=== PATIENT | female | born 1945 | race Caucasian/White ===

== ENCOUNTER 2017-11-14 21:47 | Emergency (ER) | payer MEDICARE, OTHER ==
[2017-11-14 22:55] LABS: HEMATOCRIT 29.9 % (36.0-47.0); HEMOGLOBIN 9.9 g/dL (12.0-15.5); MEAN CORPUSCULAR HEMOGLOBIN 29.3 pg (27.0-33.4); MEAN CORPUSCULAR HGB CONC 33.1 g/dL (32.0-36.0); MEAN CORPUSCULAR VOLUME 89 fl (80-97); PLATELET COUNT 301 10^3/uL (150-450); RED BLOOD COUNT 3.37 10^6/uL (3.72-5.28); RED CELL DISTRIBUTION WIDTH 13.5 % (11.5-14.0); WHITE BLOOD COUNT 11.7 10^3/uL (4.0-10.5)
--- NOTE | 2017-11-14 23:05 | RADIOLOGY REPORT (SQ) ---
EXAM DESCRIPTION: XR CHEST 1 VIEW COMPLETED DATE/TME: 11/14/2017 22:31 CLINICAL HISTORY: 72 years, Female, SOB Findings: The heart is not enlarged. No consolidation or pleural effusion. No pulmonary edema or pneumothorax. IMPRESSION: No acute disease.
[2017-11-14 23:06] LABS: ALANINE AMINOTRANSFERASE 28 U/L (9-52); ALBUMIN 3.7 g/dL (3.5-5.0); ALKALINE PHOSPHATASE 72 U/L (38-126); ANION GAP 13 (5-19); ASPARTATE AMINO TRANSFERASE 25 U/L (14-36); BILIRUBIN,DIRECT 0.4 mg/dL (0.0-0.4); BILIRUBIN,TOTAL 0.6 mg/dL (0.2-1.3); BLOOD UREA NITROGEN 35 mg/dL (7-20); CALCIUM 8.9 mg/dL (8.4-10.2); CARBON DIOXIDE 19 mmol/L (22-30); CHLORIDE 100 mmol/L (98-107); GLUCOSE 113 mg/dL (75-110); POTASSIUM 5.6 mmol/L (3.6-5.0); SODIUM 132.4 mmol/L (137-145); TOTAL PROTEIN 6.7 g/dL (6.3-8.2)
[2017-11-14 23:09] LABS: ABSOLUTE LYMPHOCYTES# (MANUAL) 0.6 10^3/uL (0.5-4.7); ABSOLUTE MONOCYTES # (MANUAL) 1.5 10^3/uL (0.1-1.4); ABSOLUTE NEUTROPHILS# (MANUAL) 9.6 10^3/uL (1.7-8.2); BASOPHILS % (MANUAL) 0 % (0-2); EOSINOPHILS % (MANUAL) 0 % (0-6); LYMPHOCYTES % (MANUAL) 5 % (13-45); MONOCYTES % (MANUAL) 13 % (3-13); PLATELET COMMENT ADEQUATE; SEGMENTED NEUTROPHILS % (MAN) 82 % (42-78); TOTAL CELLS COUNTED 100; TOXIC GRANULATION SLIGHT
[2017-11-14] MEDS ORDERED: IPRATROPIUM/ALBUTEROL 0.5-2.5 MG/3 ML AMPUL NEB ONE (23:10)
[2017-11-14] MEDS ORDERED: METHYLPREDNISOLONE INJ 125 MG/2 ML SDV IV ONE (23:12)
[2017-11-14] MEDS: MAGNESIUM SULFATE/D5W 1 GM/100 ML RTUPB IV SCH (23:44)
[2017-11-14 23:45] LABS: VENOUS BLOOD BASE EXCESS -5.3 mmol/L; VENOUS BLOOD HCO3 20.4 mmol/L (20-32); VENOUS BLOOD PCO2 40.7 mmHg (35-63); VENOUS BLOOD PH 7.32 (7.30-7.42)
[2017-11-15 00:19] LABS: APPEARANCE,URINE SLIGHTLY-CLOUDY; BILIRUBIN,URINE NEGATIVE (NEGATIVE); COLOR,URINE YELLOW; GLUCOSE, URINE NEGATIVE (NEGATIVE); KETONES,URINE NEGATIVE (NEGATIVE); LEUKOCYTE ESTERASE,URINE TRACE (NEGATIVE); NITRITE,URINE NEGATIVE (NEGATIVE); PROTEIN,URINE 30 mg/dL (NEGATIVE); URINE SPECIFIC GRAVITY 1.017; UROBILINOGEN,URINE NEGATIVE mg/dL (<2.0)
[2017-11-15] MEDS ORDERED: NORMAL SALINE 1000 ML 1,000 ML IV ONE (00:51)
[2017-11-15] MEDS: MAGNESIUM SULFATE/D5W 1 GM/100 ML RTUPB IV SCH (01:06)
[2017-11-15 03:46] LABS: ALANINE AMINOTRANSFERASE 28 U/L (9-52); ALKALINE PHOSPHATASE 64 U/L (38-126); ANION GAP 10 (5-19); ASPARTATE AMINO TRANSFERASE 22 U/L (14-36); BILIRUBIN,DIRECT 0.5 mg/dL (0.0-0.4); BILIRUBIN,TOTAL 0.5 mg/dL (0.2-1.3); BLOOD UREA NITROGEN 30 mg/dL (7-20); CALCIUM 7.8 mg/dL (8.4-10.2); CARBON DIOXIDE 18 mmol/L (22-30); CHLORIDE 104 mmol/L (98-107); GLUCOSE 195 mg/dL (75-110); POTASSIUM 5.3 mmol/L (3.6-5.0); SODIUM 131.7 mmol/L (137-145); TOTAL PROTEIN 5.7 g/dL (6.3-8.2)
[2017-11-15] MEDS ORDERED: IPRATROPIUM/ALBUTEROL 0.5-2.5 MG/3 ML AMPUL NEB ONE (05:06)
--- NOTE | 2017-11-15 05:11 | ER Document Report ---
ED Respiratory Problem - General Chief Complaint: Shortness Of Breath Stated Complaint: DIFFICULTY BREATHING Time Seen by Provider: 11/14/17 22:55 Notes: Patient is a 72-year-old female presenting to the emergency department complaining of shortness of breath. Patient states she has a history of COPD and woke up this morning a little more short of breath than normal. Patient states she took one albuterol nebulizer at 10 AM and felt a little bit better. This evening the shortness of breath returned. Patient states she took one albuterol nebulizer at 2030 and another one at 2044. These did not seem to help so she presented to the emergency room. Pt. denies chest pain, nausea, vomiting, diarrhea, lightheadedness, syncope. Patient does state she has had some congestion, cough for the last couple of days, denies fever. TRAVEL OUTSIDE OF THE [place] IN LAST 30 DAYS: No - Related Data Allergies/Adverse Reactions: Sulfa (Sulfonamide Antibiotics) Allergy (Verified 02/17/14 11:29) Past Medical History - Social History Smoking Status: Former Smoker Lives with: Family Family History: Reviewed & Not Pertinent, Hypertension Patient has suicidal ideation: No Patient has homicidal ideation: No - Past Medical History Cardiac Medical History: Reports: Hx Hypercholesterolemia, Hx Hypertension Pulmonary Medical History: Reports: Hx COPD, Hx Pneumonia Denies: Hx Tuberculosis Renal/ Medical History: Denies: Hx Peritoneal Dialysis Malignancy Medical History: Reports: Hx Breast Cancer Musculoskeletal Medical History: Reports Hx Arthritis Past Surgical History: Reports: Hx Mastectomy - Right 2004. Denies: Hx Pacemaker - Immunizations Hx Diphtheria, Pertussis, Tetanus Vaccination: Yes Hx Pneumococcal Vaccination: 11/24/09 Review of Systems - Review of Systems Constitutional: See HPI EENT: See HPI Cardiovascular: See HPI Respiratory: See HPI Gastrointestinal: See HPI Genitourinary: No symptoms reported Female Genitourinary: No symptoms reported Musculoskeletal: See HPI Skin: No symptoms reported Hematologic/Lymphatic: No symptoms reported Neurological/Psychological: No symptoms reported Physical Exam - Vital signs Vitals: Temp Pulse Resp BP Pulse Ox 97.4 F 95 18 126/40 H 96 11/14/17 22:03 11/14/17 22:03 11/14/17 22:03 11/14/17 22:03 11/14/17 22:03 - Notes Notes: GENERAL: Alert, interacts well. No acute distress. HEAD: Normocephalic, atraumatic. EYES: Pupils equal, round, and reactive to light. Extraocular movements intact. ENT: Oral mucosa moist, tongue midline. NECK: Full range of motion. Supple. Trachea midline. LUNGS: Diminished bilateral bases, wheezing inspiratory expiratory apices. No obvious respiratory distress, speaking in full sentences 99% on room air. HEART: Regular rate and rhythm. No murmur ABDOMEN: Soft, non-tender. Non-distended. Bowel sounds present in all 4 quadrants. EXTREMITIES: Moves all 4 extremities spontaneously. No edema, normal radial and dorsalis pedis pulses bilaterally. No cyanosis. BACK: no cervical, thoracic, lumbar midline tenderness. No saddle anesthesia, normal distal neurovascular exam. NEUROLOGICAL: Alert and oriented x3. Normal speech. PSYCH: Normal affect, normal mood. SKIN: Warm, dry, normal turgor. No rashes or lesions noted. Course - Re-evaluation Re-evalutation: Pt. stated she felt a lot better after initial treatments. Was 99% on RA in the room at rest. Staff got the pt. up for ambulation with SPO2 and stated that her SP02 went down to 89%. Pt. never stated she was having trouble breathing and never became tachypneic per staff. Extensive conversation with patient about potential admission due to oxygen saturation. While sitting in the room patient's oxygen saturation 99%. Patient in no obvious distress. Pt. stated she does not want to be admitted and states she usually does not walk as far as staff made her walk in the ED ever. Stated she has family at home with her all the time and has an apt with PCP on Friday already. I offered the Pt. one more breathing treatment and then we would re-check the pts ambulatory SPO2. Per staff on ambulation the pts SPO2 went to 93%, again without any signs of respiratory distress at that time. Daughter and Pt. stated they are unsure of the pts normal SP02. Pt. continues to be in no obvious distress and wishes to be d/c. Stated she was not going to stay in the hospital. Daughter stated she was going to be with the pt. and that her brother (the Pts son) lives with her and will be around all day. Extensive conversation with Pt and daughter about need to f/u with PCP for kidney function re-check and to monitor her breathing. Return precautions given, patient states they understand. Pt. stated she has plenty of Albuterol Nebs at home, instructed her to take them every 4 hours for the next few days and then after that as needed. - Vital Signs Vital signs: Temp Pulse Resp BP Pulse Ox 98.0 F 95 11 L 123/53 L 97 11/15/17 02:50 11/14/17 22:03 11/15/17 06:22 11/15/17 06:22 11/15/17 06:22 - Laboratory Result Diagrams: 11/14/17 22:43 11/15/17 03:14 Laboratory results interpreted by me: 11/14/17 11/14/17 11/14/17 22:43 22:43 23:56 WBC 11.7 H RBC 3.37 L Hgb 9.9 L Hct 29.9 L Seg Neuts % (Manual) 82 H Lymphocytes % (Manual) 5 L Abs Neuts (Manual) 9.6 H Abs Monocytes (Manual) 1.5 H Sodium 132.4 L Potassium 5.6 H Carbon Dioxide 19 L BUN 35 H Creatinine 1.97 H Est GFR ( Amer) 30 L Est GFR (Non-Af Amer) 25 L Glucose 113 H Calcium Direct Bilirubin Total Protein Albumin Urine Protein 30 H Ur Leukocyte Esterase TRACE H 11/15/17 03:14 WBC RBC Hgb Hct Seg Neuts % (Manual) Lymphocytes % (Manual) Abs Neuts (Manual) Abs Monocytes (Manual) Sodium 131.7 L Potassium 5.3 H Carbon Dioxide 18 L BUN 30 H Creatinine 1.55 H Est GFR ( Amer) 40 L Est GFR (Non-Af Amer) 33 L Glucose 195 H Calcium 7.8 L Direct Bilirubin 0.5 H Total Protein 5.7 L Albumin 3.0 L Urine Protein Ur Leukocyte Esterase Discharge - Discharge Clinical Impression: COPD (chronic obstructive pulmonary disease) Qualifiers: COPD type: unspecified COPD Qualified Code(s): J44.9 - Chronic obstructive pulmonary disease, unspecified Condition: Stable Disposition: HOME, SELF-CARE Additional Instructions: Return to the emergency department should you have any shortness of breath, chest pains, dizziness, lightheadedness, passing out, or have any other concerning symptoms. Follow-up with your primary care in 24-48 hours. Take steroids as prescribed and continue her at home albuterol every 4 hours as needed. Chronic Obstructive Lung Disease You have chronic obstructive lung disease (COPD). The symptoms come from emphysema (damage to small airways, with trapping of air in large sacks in the lung) and chronic bronchitis (repeated infection and damage to larger airways). The cause is almost always cigarette smoking, although dust exposure, asthma, and infections contribute. You should avoid fumes, dust, and smoke (especially tobacco smoke). Your condition will flare from time to time. There is no cure, but the symptoms can be treated. Bronchodilators (asthma medicine) are often helpful. Antibiotics help when infection is present. When shortness of breath is severe, we may prescribe cortisone medication. If medicine doesn't help enough, we can arrange for you to have an oxygen tank at home. Notify your doctor at once if sputum becomes thick, foul, or bloody, if you develop a fever or chest pain, or if your shortness of breath worsens. Prescriptions: Prednisone [Deltasone 20 mg Tablet] 3 tab PO DAILY 5 Days tablet Referrals: ELBERT DAY MD [Primary Care Provider] - Follow up as needed
[2017-11-15 06:30] VITALS: BP 123/53
--- NOTE | 2017-11-15 12:41 | EKG REPORT ---
SEVERITY:- ABNORMAL ECG - SINUS RHYTHM PROBABLE ANTEROSEPTAL INFARCT, AGE INDETERM VERSUS LEAD PLACEMENT : Confirmed by: Nallely Morton MD 15-Nov-2017 12:40:53
== END 2017-11-15 06:40 | disposition home or self-care (01) ==
LOC: ER 21:47
DX: J44.9 Chronic obstructive pulmonary disease, unspecified (principal); E78.00 Pure hypercholesterolemia, unspecified; I10 Essential (primary) hypertension; Z85.3 Personal history of malignant neoplasm of breast
CPT/HCPCS: 93005; 94640 ×2; 99285; 96361; 96375; 96365; 96366; 36415; 85025; 80053; 81001; 82803; 71045; 93010; J2930; J3475 ×2; A9270 ×2; J7620

== ENCOUNTER 2019-09-28 10:00 | Inpatient (IN) | payer MEDICARE, OTHER ==
[2019-09-28 10:41] LABS: ABSOLUTE LYMPHOCYTES (AUTO) 0.5 10^3/uL (0.5-4.7); ABSOLUTE MONOCYTES (AUTO) 0.6 10^3/uL (0.1-1.4); ABSOLUTE NEUT (AUTO) 5.7 10^3/uL (1.7-8.2); BASOPHILS % (AUTO) 0.4 % (0-2); HEMOGLOBIN 12.9 g/dL (12.0-15.5); LYMPHOCYTES % (AUTO) 7.5 % (13-45); MEAN CORPUSCULAR HEMOGLOBIN 28.5 pg (27.0-33.4); MEAN CORPUSCULAR HGB CONC 33.1 g/dL (32.0-36.0); MEAN CORPUSCULAR VOLUME 86 fl (80-97); MONOCYTES % (AUTO) 9.2 % (3-13); PLATELET COUNT 265 10^3/uL (150-450); RED BLOOD COUNT 4.53 10^6/uL (3.72-5.28); RED CELL DISTRIBUTION WIDTH 14.7 % (11.5-14.0); SEGMENTED NEUTROPHILS % (AUTO) 82.9 % (42-78); TOTAL CELLS COUNTED % (AUTO) 100 %; WHITE BLOOD COUNT 6.9 10^3/uL (4.0-10.5)
[2019-09-28 11:01] LABS: ALBUMIN 4.7 g/dL (3.5-5.0); ALKALINE PHOSPHATASE 75 U/L (38-126); ANION GAP 17 (5-19); ASPARTATE AMINO TRANSFERASE 50 U/L (14-36); BILIRUBIN,DIRECT 0.2 mg/dL (0.0-0.4); BILIRUBIN,TOTAL 0.5 mg/dL (0.2-1.3); BLOOD UREA NITROGEN 33 mg/dL (7-20); CALCIUM 9.6 mg/dL (8.4-10.2); CARBON DIOXIDE 20 mmol/L (22-30); CHLORIDE 100 mmol/L (98-107); GLUCOSE 122 mg/dL (75-110); POTASSIUM 5.1 mmol/L (3.6-5.0)
[2019-09-28] MEDS ORDERED: HYDRALAZINE HCL INJ/PF 20 MG/1 ML SDV IV ONE ×2 (11:01→13:04)
[2019-09-28] MEDS ORDERED: NORMAL SALINE 1000 ML 1,000 ML IV ONE (11:01)
[2019-09-28] MEDS ORDERED: ONDANSETRON HCL INJ/PF 4 MG/2 ML SDV IV ONE (11:02)
[2019-09-28] MEDS ORDERED: METOCLOPRAMIDE HCL INJ/PF 10 MG/2 ML SDV IV ONE ×2 (12:05→14:44)
[2019-09-28] MEDS ORDERED: METOPROLOL TARTRATE PF/INJ 5 MG/5 ML SDV IV ONE ×3 (12:05→13:30)
[2019-09-28 12:10] LABS: APPEARANCE,URINE CLEAR; BILIRUBIN,URINE NEGATIVE (NEGATIVE); COLOR,URINE YELLOW; GLUCOSE, URINE NEGATIVE (NEGATIVE); KETONES,URINE 20 mg/dL (NEGATIVE); LEUKOCYTE ESTERASE,URINE SMALL (NEGATIVE); NITRITE,URINE NEGATIVE (NEGATIVE); PROTEIN,URINE >=500 mg/dL (NEGATIVE); URINE SPECIFIC GRAVITY 1.014; UROBILINOGEN,URINE NEGATIVE mg/dL (<2.0)
--- NOTE | 2019-09-28 13:04 | ER Document Report ---
Entered by JAYY BRUNO SCRIBE 09/28/19 1058 Acting as scribe for:VIRGINIA TREVINO MD ED GI/ - General Chief Complaint: Nausea/Vomiting/Diarrhea Stated Complaint: NAUSEA/VOMITING Time Seen by Provider: 09/28/19 10:42 Primary Care Provider: ELBERT DAY MD [Primary Care Provider] - Follow up as needed Mode of Arrival: Medic Information source: Patient Notes: This 74 year old female patient presents to the emergency department today with complaints of nausea, vomiting, and diarrhea for the last few days. Patient was given zofran yesterday by her PCP but this did not help her vomiting. Patient has been unable to keep down any of her medications the last few days. Patient denies any fevers, cough, or abdominal pain. TRAVEL OUTSIDE OF THE [place] IN LAST 30 DAYS: No - Related Data Allergies/Adverse Reactions: Sulfa (Sulfonamide Antibiotics) Allergy (Verified 09/28/19 10:12) Past Medical History - General Information source: Patient - Social History Smoking Status: Former Smoker Cigarette use (# per day): No Chew tobacco use (# tins/day): No Frequency of alcohol use: None Drug Abuse: None Family History: Reviewed & Not Pertinent, Hypertension Patient has homicidal ideation: No - Past Medical History Cardiac Medical History: Reports: Hx Hypercholesterolemia, Hx Hypertension Pulmonary Medical History: Reports: Hx COPD, Hx Pneumonia Malignancy Medical History: Reports: Hx Breast Cancer Musculoskeletal Medical History: Reports Hx Arthritis Past Surgical History: Reports: Hx Mastectomy - Right 2004 - Immunizations Hx Diphtheria, Pertussis, Tetanus Vaccination: Yes Hx Pneumococcal Vaccination: 11/24/09 Review of Systems - Review of Systems Constitutional: denies: Fever EENT: No symptoms reported Cardiovascular: No symptoms reported Respiratory: denies: Cough Gastrointestinal: See HPI, Diarrhea, Nausea, Vomiting. denies: Abdominal pain Genitourinary: No symptoms reported Female Genitourinary: No symptoms reported Musculoskeletal: No symptoms reported Skin: No symptoms reported Hematologic/Lymphatic: No symptoms reported Neurological/Psychological: No symptoms reported -: Yes All other systems reviewed and negative Physical Exam - Vital signs Vitals: Pulse Ox 92 09/28/19 10:05 - Notes Notes: Physical Exam: General: Alert, very shaky, appears weak. HEENT: Normocephalic. Atraumatic. PERRL. Extraocular movements intact. Oropharynx clear. Dry oral mucosa. Neck: Supple. Non-tender. Respiratory: No respiratory distress. Clear and equal breath sounds bilaterally. Cardiovascular: Tachycardic, regular rhythm. Abdominal: Normal Inspection. Non-tender. No distension. Normal Bowel Sounds. Back: No gross abnormalities. Extremities: Moves all four extremities. Upper extremities: Normal inspection. Normal ROM. Lower extremities: Normal inspection. No edema. Normal ROM. Neurological: Normal cognition. AAOx4. Normal speech. Psychological: Normal affect. Normal Mood. Skin: Warm. Dry. Normal color. Course - Re-evaluation Re-evalutation: 09/28/19 15:07 The patient was evaluated during the global COVID-19 pandemic and that diagnosis was suspected/considered upon their initial presentation. Their evaluation, treatment and testing was consistent with current guidelines for patients who present with complaints or symptoms that may be related to COVID-19. - Vital Signs Vital signs: Temp Pulse Resp BP Pulse Ox 99.3 F 26 H 181/64 H 96 09/28/19 13:01 09/28/19 13:45 09/28/19 13:45 09/28/19 13:45 - Laboratory Result Diagrams: 09/28/19 10:24 09/28/19 10:24 Laboratory results interpreted by me: 09/28/19 09/28/19 09/28/19 10:24 10:24 10:24 RDW 14.7 H Lymph % (Auto) 7.5 L Seg Neutrophils % 82.9 H D-Dimer 1.12 H Sodium 136.8 L Potassium 5.1 H Carbon Dioxide 20 L BUN 33 H Creatinine 1.39 H Est GFR ( Amer) 45 L Est GFR (MDRD) Non-Af 37 L Glucose 122 H AST 50 H Urine Protein Urine Ketones Urine Blood Ur Leukocyte Esterase 09/28/19 11:44 RDW Lymph % (Auto) Seg Neutrophils % D-Dimer Sodium Potassium Carbon Dioxide BUN Creatinine Est GFR ( Amer) Est GFR (MDRD) Non-Af Glucose AST Urine Protein >=500 H Urine Ketones 20 H Urine Blood SMALL H Ur Leukocyte Esterase SMALL H - EKG Interpretation by Tn EKG shows normal: Sinus rhythm, [place], Intervals, ST-T Waves. abnormal: QRS Complexes - Consider anteroseptal infarct Rate: Normal - 90 Rhythm: NSR When compared to previous EKG there are: No significant change - Consults Dr. Manzo Time consulted: 14:27 Consulted provider: will come to ER Dr. Moore Time consulted: 14:17 Consulted provider: will see as inpatient - Okay to keep the patient here. He will consult. Discharge - Discharge Clinical Impression: Elevated troponin I level, Asymptomatic hypertensive urgency Nausea and vomiting Qualifiers: Vomiting type: unspecified Vomiting Intractability: non-intractable Qualified Code(s): R11.2 - Nausea with vomiting, unspecified Condition: Stable Disposition: ADMITTED INPATIENT Admitting Provider: Jovany (Hospitalist) Unit Admitted: IMCU Referrals: ELBERT DAY MD [Primary Care Provider] - Follow up as needed I personally performed the services described in the documentation, reviewed and edited the documentation which was dictated to the scribe in my presence, and it accurately records my words and actions.
[2019-09-28] MEDS ORDERED: NORMAL SALINE 1000 ML 500 ML IV ONE (13:05)
[2019-09-28] MEDS ORDERED: CLONIDINE HCL 0.2 MG TABLET PO ONE (13:30)
--- NOTE | 2019-09-28 15:44 | RADIOLOGY REPORT (SQ) ---
EXAM DESCRIPTION: ACUTE ABDOMEN SERIES IMAGES COMPLETED DATE/TIME: 09/28/2019 3:25 pm REASON FOR STUDY: Persistent nausea and vomiting COMPARISON: None. NUMBER OF VIEWS: Three views. TECHNIQUE: Frontal chest, supine abdomen and upright/decubitus abdomen radiographic images acquired. LIMITATIONS: None. FINDINGS: CHEST: There is slight blurring of the right hemidiaphragm. FREE AIR: None. No abnormal gas collections. BOWEL GAS PATTERN: Nonobstructive pattern. No dilated loops or air fluid levels. CALCIFICATIONS: No suspicious calcifications. HARDWARE: None in the abdomen. SOFT TISSUES: No gross mass or suggestion of organomegaly. BONES: Lumbar degenerative disc disease and spondylosis. Scoliosis. OTHER: No other significant finding. IMPRESSION: Cannot exclude a limited right lower lobe pneumonia. Osseous findings as described. TECHNICAL DOCUMENTATION: JOB ID: [id number] 2010 [employer]- All Rights Reserved Reading location - IP/workstation name: [email or web address]
--- NOTE | 2019-09-28 16:51 | PDOC H&P ---
History of Present Illness Admission Date/PCP: 09/28/19 15:46 ELBERT DAY MD Patient complains of: The patient has been having nausea and vomiting for the last several days. History of Present Illness: SNOW FOX is a 74 year old female with a past medical history of hypertension and hypercholesterolemia. She also has a history of chronic obstructive pulmonary disease as well as breast cancer status post right mastectomy in 2004. For the last 2 to 3 days she has been having nausea vomiting and diarrhea. She denies any fever. She does not have any focal abdominal pain. This is not associated with any cough or chest pain. Because of the nausea and vomiting she has not been able to keep down any of her antihypertensive medications. She in fact normally takes clonidine, Imdur, metoprolol, hydralazine, losartan and amlodipine. Because of this her blood pressure is out of control. The highest systolic pressure was 210 with the highest diastolic pressure of 117. Highest pulse rate was 112. Troponins were 0.162 initially and this increased to 0.271. Third troponin is pending. BUN and creatinine were elevated. With a BUN of 33 and a creatinine of 1.39 her GFR was less than 40. The patient will be seen by cardiology. An echocardiogram has been ordered. For the severe hypertension a renal Doppler study was ordered to check for renal artery stenosis. We will try and correct her blood pressure slowly. Her d-dimer was 1.12 but her LDH and ferritin were normal. I do not believe this is Covid-19 related. She will be admitted to the hospital service. She will be monitored closely on telemetry. We will have serial troponins drawn and I have asked for a repeat EKG in the morning. Cardiology will be seeing the patient. I do have her on full-strength Lovenox therapy at 50 mg once daily (adjusted for renal function). We will continue aspirin and statin therapy. Past Medical History Cardiac Medical History: Reports: Hyperlipidema, Hypertension Pulmonary Medical History: Reports: Chronic Obstructive Pulmonary Disease (COPD), Pneumonia Denies: Tuberculosis Malignancy Medical History: Reports: Breast Cancer Musculoskeltal Medical History: Reports: Arthritis Psychiatric Medical History: Reports: Tobacco Dependency Past Surgical History Past Surgical History: Reports: Mastectomy - Right 2004 Denies: Pacemaker Social History Information Source: Patient, [facility] Records Smoking Status: Former Smoker Electronic Cigarette use?: No Frequency of Alcohol Use: None Hx Recreational Drug Use: No Hx Prescription Drug Abuse: No - Advance Directive Resuscitation Status: Do Not Resuscitate Surrogate healthcare decision maker:: The patient is a and her daughter would be the designated decision maker. She in fact lives quite close to her daughter. Family History Family History: Reviewed & Not Pertinent, Hypertension Parental Family History Reviewed: Yes Children Family History Reviewed: Yes Sibling(s) Family History Reviewed.: Yes Medication/Allergy Home Medications: Amlodipine Besylate [Norvasc 5 mg Tablet] 5 mg PO DAILY 09/28/19 Clonidine HCl [Catapres 0.2 mg Tablet] 0.4 mg PO Q12 09/28/19 Fluticasone/Umeclidin/Vilanter [Trelegy 100-62.5-25 Mcg Ellipta 14 Dose/Dpi] 1 puff IH DAILY 09/28/19 Hydralazine HCl [Apresoline 50 mg Tablet] 75 mg PO Q8 09/28/19 Isosorbide Mononitrate [Imdur 30 mg Tablet.er] 30 mg PO BID 09/28/19 Losartan Potassium 100 mg PO DAILY 09/28/19 Metoprolol Succinate [Toprol Xl 50 mg Tab.sr] 100 mg PO DAILY 09/28/19 Ondansetron [Zofran Odt 4 mg Tablet] 4 mg PO Q8HP PRN 09/28/19 Pravastatin Sodium 40 mg PO QHS 09/28/19 Allergies/Adverse Reactions: Sulfa (Sulfonamide Antibiotics) Allergy (Verified 09/28/19 10:12) Review of Systems All systems: reviewed and no additional remarkable complaints except as stated Constitutional: PRESENT: fatigue Gastrointestinal: PRESENT: diarrhea, nausea, vomiting Physical Exam Vital Signs: Temp Pulse Resp BP Pulse Ox 99.3 F 26 H 181/64 H 96 09/28/19 13:01 09/28/19 13:45 09/28/19 13:45 09/28/19 13:45 Intake & Output 09/27/19 09/28/19 09/29/19 06:59 06:59 06:59 Intake Total 1000 Balance 1000 Weight 50.349 kg General appearance: PRESENT: no acute distress, well-developed, well-nourished. ABSENT: cooperative - Patient was sleepy. She had vomited earlier and has received several doses of antiemetic therapy. Her participation in this encounter was somewhat limited. Head exam: PRESENT: atraumatic, normocephalic Eye exam: PRESENT: other - Unable to assess Ear exam: PRESENT: normal external ear exam. ABSENT: bleeding, drainage Mouth exam: PRESENT: dry mucosa, tongue midline Respiratory exam: PRESENT: clear to auscultation nelly, symmetrical, unlabored. ABSENT: prolonged expiratory phas, rales, rhonchi, tachypnea, wheezes Cardiovascular exam: PRESENT: irregular rhythm. ABSENT: bradycardia, diastolic murmur, systolic murmur, tachycardia GI/Abdominal exam: PRESENT: normal bowel sounds, soft. ABSENT: distended, guarding, tenderness Rectal exam: PRESENT: deferred Gentrourinary exam: ABSENT: indwelling catheter Extremities exam: ABSENT: pedal edema Musculoskeletal exam: PRESENT: normal inspection, other - Decreased muscle mass. ABSENT: deformity, dislocation Neurological exam: PRESENT: awake - Just barely awake. She did open her eyes to verbal stimulus. She clearly was not alert., oriented to person, oriented to place, oriented to situation, CN II-XII grossly intact. ABSENT: alert, motor sensory deficit Psychiatric exam: PRESENT: flat affect. ABSENT: agitated, anxious Focused psych exam: ABSENT: delusional, paranoid, restlessness Skin exam: PRESENT: dry, normal color, warm. ABSENT: rash Results Laboratory Results: 09/28/19 10:24 09/28/19 10:24 09/28/19 09/28/19 09/28/19 10:24 10:24 10:24 WBC 6.9 RBC 4.53 Hgb 12.9 Hct 39.0 MCV 86 MCH 28.5 MCHC 33.1 RDW 14.7 H Plt Count 265 Seg Neutrophils % 82.9 H Sodium 136.8 L Potassium 5.1 H Chloride 100 Carbon Dioxide 20 L Anion Gap 17 BUN 33 H Creatinine 1.39 H Est GFR ( Amer) 45 L Glucose 122 H Calcium 9.6 Magnesium 2.3 Ferritin Total Bilirubin 0.5 AST 50 H Alkaline Phosphatase 75 Total Protein 8.0 Albumin 4.7 Urine Color Urine Appearance Urine pH Ur Specific [place] Urine Protein Urine Glucose (UA) Urine Ketones Urine Blood Urine Nitrite Ur Leukocyte Esterase Urine WBC (Auto) Urine RBC (Auto) 09/28/19 09/28/19 11:44 14:33 WBC RBC Hgb Hct MCV MCH MCHC RDW Plt Count Seg Neutrophils % Sodium Potassium Chloride Carbon Dioxide Anion Gap BUN Creatinine Est GFR ( Amer) Glucose Calcium Magnesium Ferritin 262.00 Total Bilirubin AST Alkaline Phosphatase Total Protein Albumin Urine Color YELLOW Urine Appearance CLEAR Urine pH 5.0 Ur Specific [place] 1.014 Urine Protein >=500 H Urine Glucose (UA) NEGATIVE Urine Ketones 20 H Urine Blood SMALL H Urine Nitrite NEGATIVE Ur Leukocyte Esterase SMALL H Urine WBC (Auto) 17 Urine RBC (Auto) 7 09/28/19 09/28/19 09/28/19 10:24 10:24 12:25 Creatine Kinase 118 102 Troponin I 0.162 09/28/19 12:25 Creatine Kinase Troponin I 0.271 Impressions: Acute Abdomen Series 09/28/19 14:43 IMPRESSION: Cannot exclude a limited right lower lobe pneumonia. Osseous findings as described. Assessment and Plan - Diagnosis (1) Asymptomatic hypertensive urgency Is this a current diagnosis for this admission?: Yes Plan: I do not want to drive her blood pressure down too quickly. I will substitute carvedilol for metoprolol. I will decrease her hydralazine to 50 mg twice daily. I will split her losartan to 50 mg twice daily. We will continue the amlodipine 5 mg daily. I have decreased the clonidine to 0.2 mg twice daily. I have continued the Imdur 30 mg twice daily. We will continue to monitor her on telemetry and with serial vital signs. (2) Elevated troponin I level Is this a current diagnosis for this admission?: Yes Plan: The first troponin was 0.162. The second troponin was 0.271. The third troponin is pending. The EKG did show a flutter with possible nonspecific ST changes indicating strain. The patient is already on nitrate therapy. I have added aspirin 81 mg as well as the full strength Lovenox. In addition we will continue her statin therapy. I did substitute 80 mg of atorvastatin for her 40 mg of pravastatin. (3) Atrial flutter Qualifiers: Atrial flutter type: typical Qualified Code(s): I48.3 - Typical atrial flutter Is this a current diagnosis for this admission?: Yes Plan: I did not see atrial fibrillation or atrial flutter in her history. For now we will utilize carvedilol instead of metoprolol. I will start at 6.25 mg twice daily and adjust based on pulse and blood pressure. She will be on full- strength Lovenox anticoagulation at this time. (4) Nausea and vomiting Qualifiers: Vomiting type: unspecified Vomiting Intractability: non-intractable Qualified Code(s): R11.2 - Nausea with vomiting, unspecified Is this a current diagnosis for this admission?: Yes Plan: Possibly related to a viral illness. I have ordered a stool for culture and sensitivity. Antiemetics are available as needed. (5) Chronic obstructive pulmonary disease Qualifiers: COPD type: unspecified COPD Qualified Code(s): J44.9 - Chronic obstructive pulmonary disease, unspecified Is this a current diagnosis for this admission?: Yes Plan: No need for oxygen supplementation. We will continue the patient's Trelegy inhaler. (6) Acute kidney injury Is this a current diagnosis for this admission?: Yes Plan: Possibly related to volume loss from nausea and vomiting with associated inability for appropriate oral intake. Will administer IV fluids. We will continue to monitor intake and output as well as renal function by laboratory studies (7) Hyperkalemia Is this a current diagnosis for this admission?: Yes Plan: Serum potassium is only 5.1. This is not a clinically significant elevation. Will monitor with serial laboratory studies. (8) Hyperglycemia Is this a current diagnosis for this admission?: Yes Plan: Glucose was 122. This is not clinically significant. I will check hemoglobin A1c but no Accu-Cheks at this time. (9) Non-ST elevation myocardial infarction (NSTEMI) Is this a current diagnosis for this admission?: Yes Plan: The troponin levels are definitely above the baseline cutoff for acute infarct. This could be related to strain from hypertension as well as the new atrial flutter. I have ordered a repeat EKG in the morning as well as serial troponins through [facility]. This could certainly be a non-ST elevation myocardial infarction as well. Await further testing results. Cardiology will be seeing the patient as well. An echocardiogram has been ordered. - Time Time Spent with patient: 35 or more minutes Medications reviewed and adjusted accordingly: Yes Anticipated Discharge Disposition: Home, Self Care Anticipated Discharge Timeframe: Unknown - Inpatient Certification Based on my medical assessment, after consideration of the patient's comorbidities, presenting symptoms, or acuity I expect that the services needed warrant INPATIENT care.: Yes I certify that my determination is in accordance with my understanding of Medicare's requirements for reasonable and necessary INPATIENT services [42 CFR 412.3e].: Yes Medical Necessity: Significant Comorbidiites Make Outpatient Treatment Too Risky, Need Close Monitoring Due to Risk of Patient Decompensation, Need For IV Fluids, Need For Continuous Telemetry Monitoring, Need for Pain Control Post Hospital Care: D/C Fitting Room Checker Documentation
[2019-09-28] MEDS ORDERED: MAG HYDROX/AL HYDROX/SIMETH SUSP 30 ML UDCUP PO PRN (17:09)
[2019-09-28] MEDS ORDERED: PROMETHAZINE HCL 25 MG SUPP.RECT PR PRN (17:09)
[2019-09-28] MEDS ORDERED: PROMETHAZINE HCL INJ 25 MG/1 ML VIAL IV PRN (17:09)
[2019-09-28] MEDS ORDERED: ACETAMINOPHEN 650 MG SUPP.RECT PR PRN (17:09)
[2019-09-28] MEDS ORDERED: METOPROLOL TARTRATE PF/INJ 5 MG/5 ML SDV IV PRN (17:49)
[2019-09-28] MEDS ORDERED: HYDRALAZINE HCL INJ/PF 20 MG/1 ML SDV IV PRN (17:49)
[2019-09-28] MEDS: LOSARTAN POTASSIUM 50 MG TABLET PO SCH (18:23)
[2019-09-28] MEDS: ISOSORBIDE MONONITRATE 30 MG TAB.ER.24H PO SCH (18:24)
--- NOTE | 2019-09-28 18:56 | EKG REPORT ---
SEVERITY:- ABNORMAL ECG - SINUS RHYTHM. CONSIDER ANTEROSEPTAL INFARCT : Confirmed by: Reji Delacruz MD 28-Sep-2019 18:55:57
[2019-09-28] MEDS ORDERED: MORPHINE SULFATE 10 MG/ML INJ IV PRN (19:54)
[2019-09-28] MEDS: ENOXAPARIN SODIUM INJ 60 MG/0.6 ML DISP.SYRIN SUBCUT SCH (21:41)
[2019-09-28] MEDS: ASPIRIN 81 MG TABLET, ENT COATED PO SCH (21:42)
[2019-09-28] MEDS: CLONIDINE HCL 0.2 MG TABLET PO SCH (21:42)
[2019-09-28] MEDS: ATORVASTATIN CALCIUM 80 MG TABLET PO SCH (21:42)
[2019-09-28] MEDS: FAMOTIDINE 20 MG TABLET PO SCH (21:43)
[2019-09-28] MEDS: RINGERS SOLUTION,LACTATED 1,000 ML IV PRN (21:43)
[2019-09-28] MEDS: CARVEDILOL 6.25 MG TABLET PO SCH (21:43)
[2019-09-28] MEDS ORDERED: FAMOTIDINE 20 MG TABLET PO SCH (22:00)
[2019-09-28] MEDS ORDERED: ENOXAPARIN SODIUM INJ 60 MG/0.6 ML DISP.SYRIN SUBCUT SCH (22:00)
[2019-09-29] MEDS: LOSARTAN POTASSIUM 50 MG TABLET PO SCH ×2 (05:54→17:43)
[2019-09-29 06:49] LABS: APPEARANCE,URINE CLEAR; BILIRUBIN,URINE NEGATIVE (NEGATIVE); COLOR,URINE YELLOW; GLUCOSE, URINE NEGATIVE (NEGATIVE); KETONES,URINE TRACE mg/dL (NEGATIVE); LEUKOCYTE ESTERASE,URINE TRACE (NEGATIVE); NITRITE,URINE NEGATIVE (NEGATIVE); PROTEIN,URINE 100 mg/dL (NEGATIVE); URINE SPECIFIC GRAVITY 1.011; UROBILINOGEN,URINE NEGATIVE mg/dL (<2.0)
--- NOTE | 2019-09-29 07:43 | EKG REPORT ---
SEVERITY:- BORDERLINE ECG - SINUS RHYTHM NONSPECIFIC ST-T CHANGES- INFERIOR LEADS CONSIDER OLD ANTEROSEPTAL IN : Confirmed by: Reji Delacruz MD 29-Sep-2019 07:42:39
[2019-09-29 08:06] LABS: HEMATOCRIT 37.1 % (36.0-47.0); HEMOGLOBIN 12.4 g/dL (12.0-15.5); MEAN CORPUSCULAR HEMOGLOBIN 28.7 pg (27.0-33.4); MEAN CORPUSCULAR HGB CONC 33.4 g/dL (32.0-36.0); MEAN CORPUSCULAR VOLUME 86 fl (80-97); PLATELET COUNT 310 10^3/uL (150-450); RED BLOOD COUNT 4.32 10^6/uL (3.72-5.28); RED CELL DISTRIBUTION WIDTH 14.5 % (11.5-14.0)
[2019-09-29 08:28] LABS: ALBUMIN 3.6 g/dL (3.5-5.0); ANION GAP 9 (5-19); BLOOD UREA NITROGEN 20 mg/dL (7-20); CALCIUM 8.3 mg/dL (8.4-10.2); CARBON DIOXIDE 26 mmol/L (22-30); CHLORIDE 102 mmol/L (98-107); CHOLESTEROL 178.31 mg/dL (0-200); GLUCOSE 86 mg/dL (75-110); PHOSPHORUS 1.9 mg/dL (2.5-4.5); POTASSIUM 4.3 mmol/L (3.6-5.0); TRIGLYCERIDES 228 mg/dL (<150)
[2019-09-29 08:39] LABS: DIRECT LDL 91 mg/dL (<100)
[2019-09-29 08:41] LABS: VLDL CHOLESTEROL 45.6 mg/dL (10-31)
--- NOTE | 2019-09-29 10:09 | RADIOLOGY REPORT (SQ) ---
EXAM DESCRIPTION: DUPLEX ART/STANISLAV FLOW COMPLETE IMAGES COMPLETED DATE/TIME: 09/29/2019 7:16 am REASON FOR STUDY: Htn, assess renal arteries/aorta COMPARISON: None. TECHNIQUE: Realtime and static grayscale images acquired. Selected color Doppler, velocities and spe ctral images recorded. LIMITATIONS: None. FINDINGS: RIGHT KIDNEY: RENAL ARTERY VELOCITIES: 62 centimeters/second at the origin. 105 cm/sec at the hilum. Segmental a rtery velocity 73 cm/sec. RENAL VEIN: Color doppler flow present, patent. VELOCITY RATIO: 0.94. Normal waveforms. KIDNEY: Normal size. Multiple renal cysts. LEFT KIDNEY: RENAL ARTERY VELOCITIES: Origin velocities not obtained. 120 cm/sec at the hilum. Segmental artery velocity 72 cm/sec. RENAL VEIN: Color doppler flow present, patent. VELOCITY RATIO: 0.91. Normal waveforms. KIDNEY: Normal size. No significant pathology. BLADDER: Normal. OTHER: No other significant finding. IMPRESSION: NO DOPPLER EVIDENCE OF HEMODYNAMICALLY SIGNIFICANT RENAL ARTERY STENOSIS. COMMENT: NORMAL RENAL ARTERY/AORTA VELOCITY RATIO IS LESS THAN OR EQUAL TO 3.5. TECHNICAL DOCUMENTATION: JOB ID: [id number] [employer]- All Rights Reserved Reading location - IP/workstation name: [email or web address]
[2019-09-29] MEDS: CLONIDINE HCL 0.2 MG TABLET PO SCH ×2 (10:13→21:51)
[2019-09-29] MEDS: ISOSORBIDE MONONITRATE 30 MG TAB.ER.24H PO SCH ×2 (10:14→17:43)
[2019-09-29] MEDS: FLUTICASONE/UMECLIDIN/VILANTER 100-62.5-25 MCG/DOSE IH SCH (10:14)
[2019-09-29] MEDS: AMLODIPINE BESYLATE 5 MG TABLET PO SCH (10:14)
[2019-09-29] MEDS: CARVEDILOL 6.25 MG TABLET PO SCH ×2 (10:14→21:52)
--- NOTE | 2019-09-29 10:21 | XCELERA REPORT ---
[address] [address] Transthoracic Echocardiogram Report Name: SNOW FOX Age: 74 yrs Gender: Female : 1945 Patient Status: Inpatient Patient Location: [address] [place] [address] Study Date: 09/28/2019 06:19 PM Height: 64 in Weight: 111 lb BSA: 1.5 m2 Procedure: A complete two-dimensional transthoracic echocardiogram was performed (2D, M-mode, spectral and color flow Doppler). The study was technically difficult with many images being suboptimal in quality. Images from the parasternal window were difficult to obtain and are suboptimal in quality. Reason For Study: a-fib, ?NSTEMI Ordering Physician: IRMA JIMENEZ Performed By: Comfort Prajapati Interpretation Summary The left ventricle is normal in size. Left ventricular systolic function is normal. The Ejection Fraction estimate is 65-70%. Doppler measurements suggest impaired left ventricular relaxation, which is associated with grade I/IV or mild diastolic dysfunction. The left ventricular wall motion is normal. There is no thrombus. Trace to mild MR, trace TR. Calcified aortic valve with mild stenosis with a peak velocity of 2.2 m/s an mean gradient of 8 mmHg. MMode/2D Measurements & Calculations RVDd: 2.7 cm LVIDd: 4.4 cm FS: 39.4 % Ao root diam: 2.6 cm IVSd: 0.82 cm LVIDs: 2.7 cm EDV(Teich): 87.3 mlAo root area: LVPWd: 0.99 cm ESV(Teich): 26.0 ml5.3 cm2 EF(Teich): 70.2 % LA dimension: 2.5 cm LVOT diam: 1.7 cm LVLd ap4: 4.9 cm SV(MOD-sp4): LVOT area: EDV(MOD-sp4): 19.0 ml 32.0 ml 2.2 cm2 LVLs ap4: 4.5 cm ESV(MOD-sp4): 13.0 ml EF(MOD-sp4): 59.4 % Doppler Measurements & Calculations MV E max samantha: MV P1/2t max samantha: Ao V2 max: AI max samantha: 89.9 cm/sec 96.2 cm/sec 220.3 cm/sec 295.7 cm/sec MV A max samantha: MV P1/2t: 80.7 msec Ao max PG: AI max P.0 mmHg 119.0 cm/sec MVA(P1/2t): 2.7 cm2 19.4 mmHg AI dec slope: MV E/A: 0.76 MV dec slope: Ao V2 mean: 144.5 cm/sec2 128.3 cm/sec AI P1/2t: 599.3 msec 349.0 cm/sec2 Ao mean PG: MV dec time: 0.32 sec8.2 mmHg Ao V2 VTI: 46.1 cm ERIC(I,D): 1.5 cm2 ERIC(V,D): 1.3 cm2 LV V1 max PG: SV(LVOT): 70.4 ml PA V2 max: AV P1/2t-pr_phl: 7.1 mmHg 151.4 cm/sec 599.3 msec LV V1 mean PG: PA max P.5 mmHg 9.2 mmHg LV V1 max: 133.3 cm/sec LV V1 mean: 86.9 cm/sec LV V1 VTI: 32.4 cm MV P1/2t-pr_phl: 80.7 msec Left Ventricle The left ventricle is normal in size. Left ventricular systolic function is normal. The Ejection Fraction estimate is 65-70%. Doppler measurements suggest impaired left ventricular relaxation, which is associated with grade I/IV or mild diastolic dysfunction. The left ventricular wall motion is normal. There is no thrombus. Right Ventricle The right ventricle is normal in size, thickness and function. The right ventricular systolic function is normal. Atria The right atrium is normal. The left atrial size is normal. Mitral Valve There is mild to moderate mitral leaflet calcification. There is no evidence of mitral valve prolapse. There is no mitral valve stenosis. There is a trace to mild amount of mitral regurgitation. Aortic Valve The aortic valve is not well visualized secondary to technical limitations. The aortic valve is moderately calcified. There is mild aortic stenosis. There is a trace amount of aortic regurgitation. Tricuspid Valve The tricuspid valve is not well visualized, but is grossly normal. There is no tricuspid valve prolapse. There is no tricuspid stenosis. There is a trace amount of tricuspid regurgitation. Pulmonic Valve The pulmonic valve is not well visualized. There is no vegetation on the pulmonic valve. There is no pulmonic valvular stenosis. There is no pulmonic valvular regurgitation. Effusions There is no pericardial effusion. There is no pleural effusion. : IRMA JIMENEZ Antonio
--- NOTE | 2019-09-29 10:39 | PDOC CONSULTATION ---
Consultation Consult Date: 09/29/19 Attending physician:: IRMA JIMENEZ Provider Consulted: AMARILYS SANZ Consult reason:: HTN and elevated troponin. History of Present Illness Admission Date/PCP: 09/28/19 15:46 ELBERT DAY MD History of Present Illness: SNOW FOX is a 74 year old female with history of hypertension, COPD, breast cancer status post right mastectomy in 2004 and hypercholesterolemia who is consulted to our service for evaluation of elevated troponins. She had been in her usual state of health until approximately 3 days ago when she began having nausea, vomiting and diarrhea reason why she was not able to take any of her medications or if she did, she vomited them right back up. In the emergency room she was found to have a systolic blood pressure of 210 mmHg. Since admission she has remained asymptomatic and feels 100% better. She specifically denies history of atrial flutter or atrial fibrillation as well as chest pain, shortness of breath, DENT, PND, lower extremity edema, palpitations, syncope and presyncope. She is now tolerating p.o.'s with uptrending troponin which peaked at 1.090. When specifically asked, she states that she is able to perform her regular daily activities as well as physical activities without any ischemic or heart failure symptoms. Her echocardiogram yesterday demonstrated a normal ejection fraction without focal wall motion abnormalities and very mild aortic stenosis with a peak velocity of 2.2 m/s and a mean gradient of 8 mmHg. Since admission her blood pressure has remained well controlled. Physical exam on 09/29/2019: GENERAL: Small, appears older than stated age. Pleasant and conversational. Oriented x3 with normal mood. Not in acute distress. Well groomed and well developed. HEENT: Normocephalic, atraumatic. Pupils equal. Sclerae anicteric. Oropharynx moist. NECK: No JVD. No carotid bruits. LUNGS: Clear to auscultation bilaterally. Decreased breath sounds bilaterally normal respiratory effort without the use of accessory muscles or intercostal retractions. CARDIOVASCULAR: Regular rate and rhythm, normal S1 and S2 without murmurs, rubs, or gallops. PMI not displaced. ABDOMEN: No masses or tenderness to palpation. No bruit. No splenomegaly or hepatomegaly. No abdominal aorta bruit noted. EXTREMITIES: No edema, no cyanosis, no clubbing. +2 pulses femoral and pedal pulses bilaterally. SKIN: No lesions or rashes. MUSCULOSKELETAL: No chest tenderness to palpation. Barrel chest. NEUROLOGIC: Nonfocal. No gross sensory or motor deficits bilateral upper or lower extremities. Cardiac studies: Echocardiogram on 09/28/2019 at [facility]: -EF greater than 65%. -Grade 1 diastolic dysfunction. -No wall motion abnormalities. -Trace TR, trace AI. -Mild aortic stenosis with a peak velocity of 2.2 m/s and a mean gradient of 8 mmHg. Echocardiogram on 06/25/2017: -EF greater than 65%. -Mild concentric LVH. -Grade 2 diastolic dysfunction. -Elevated filling pressures. -Mild to moderate MR, mild TR. -Mild pulmonary hypertension. Lexiscan MPS on 06/25/2017: -No evidence of ischemia or infarct. Past Medical History Cardiac Medical History: Reports: Hyperlipidema, Hypertension Pulmonary Medical History: Reports: Chronic Obstructive Pulmonary Disease (COPD), Pneumonia Denies: Tuberculosis Malignancy Medical History: Reports: Breast Cancer Musculoskeltal Medical History: Reports: Arthritis Psychiatric Medical History: Reports: Tobacco Dependency Denies: Depression Past Surgical History Past Surgical History: Reports: Mastectomy - Right 2004 Denies: Pacemaker Social History Smoking Status: Former Smoker Electronic Cigarette use?: No Frequency of Alcohol Use: None Hx Recreational Drug Use: No Hx Prescription Drug Abuse: No - Advance Directive Resuscitation Status: Do Not Resuscitate Family History Family History: Reviewed & Not Pertinent, Hypertension Parental Family History Reviewed: Yes Children Family History Reviewed: Yes Sibling(s) Family History Reviewed.: Yes Medication/Allergy Home Medications: Amlodipine Besylate [Norvasc 5 mg Tablet] 5 mg PO DAILY 09/28/19 Clonidine HCl [Catapres 0.2 mg Tablet] 0.4 mg PO Q12 09/28/19 Fluticasone/Umeclidin/Vilanter [Trelegy 100-62.5-25 Mcg Ellipta 14 Dose/Dpi] 1 puff IH DAILY 09/28/19 Hydralazine HCl [Apresoline 50 mg Tablet] 75 mg PO Q8 09/28/19 Isosorbide Mononitrate [Imdur 30 mg Tablet.er] 30 mg PO BID 09/28/19 Losartan Potassium 100 mg PO DAILY 09/28/19 Metoprolol Succinate [Toprol Xl 50 mg Tab.sr] 100 mg PO DAILY 09/28/19 Ondansetron [Zofran Odt 4 mg Tablet] 4 mg PO Q8HP PRN 09/28/19 Pravastatin Sodium 40 mg PO QHS 09/28/19 Allergies/Adverse Reactions: Sulfa (Sulfonamide Antibiotics) Allergy (Verified 09/28/19 10:12) Physical Exam Vital Signs: Temp Pulse Resp BP Pulse Ox 98.0 F 77 20 135/55 H 98 09/29/19 03:44 09/29/19 03:44 09/29/19 03:44 09/29/19 03:44 09/29/19 03:44 Intake & Output 09/28/19 09/29/19 09/30/19 06:59 06:59 06:59 Intake Total 2500 Output Total 1100 Balance 1400 Weight 54 kg Results Laboratory Results: 09/28/19 10:24 09/28/19 10:24 09/28/19 09/28/19 09/28/19 10:24 10:24 10:24 WBC 6.9 RBC 4.53 Hgb 12.9 Hct 39.0 MCV 86 MCH 28.5 MCHC 33.1 RDW 14.7 H Plt Count 265 Seg Neutrophils % 82.9 H Sodium 136.8 L Potassium 5.1 H Chloride 100 Carbon Dioxide 20 L Anion Gap 17 BUN 33 H Creatinine 1.39 H Est GFR ( Amer) 45 L Glucose 122 H Calcium 9.6 Magnesium 2.3 Ferritin Total Bilirubin 0.5 AST 50 H Alkaline Phosphatase 75 Total Protein 8.0 Albumin 4.7 Urine Color Urine Appearance Urine pH Ur Specific [place] Urine Protein Urine Glucose (UA) Urine Ketones Urine Blood Urine Nitrite Ur Leukocyte Esterase Urine WBC (Auto) Urine RBC (Auto) 09/28/19 09/28/19 11:44 14:33 WBC RBC Hgb Hct MCV MCH MCHC RDW Plt Count Seg Neutrophils % Sodium Potassium Chloride Carbon Dioxide Anion Gap BUN Creatinine Est GFR ( Amer) Glucose Calcium Magnesium Ferritin 262.00 Total Bilirubin AST Alkaline Phosphatase Total Protein Albumin Urine Color YELLOW Urine Appearance CLEAR Urine pH 5.0 Ur Specific [place] 1.014 Urine Protein >=500 H Urine Glucose (UA) NEGATIVE Urine Ketones 20 H Urine Blood SMALL H Urine Nitrite NEGATIVE Ur Leukocyte Esterase SMALL H Urine WBC (Auto) 17 Urine RBC (Auto) 7 09/28/19 09/28/19 09/28/19 10:24 10:24 12:25 Creatine Kinase 118 102 Troponin I 0.162 09/28/19 09/28/19 09/29/19 12:25 19:20 01:15 Creatine Kinase Troponin I 0.271 1.090 1.040 Impressions: Acute Abdomen Series 09/28/19 14:43 IMPRESSION: Cannot exclude a limited right lower lobe pneumonia. Osseous findings as described. 09/28/19 10:24 09/28/19 10:24 MCV 86 fl (80-97) 09/28/19 10:24 MCH 28.5 pg (27.0-33.4) 09/28/19 10:24 MCHC 33.1 g/dL (32.0-36.0) 09/28/19 10:24 RDW 14.7 % (11.5-14.0) H 09/28/19 10:24 Seg Neutrophils % 82.9 % (42-78) H 09/28/19 10:24 Chloride 100 mmol/L (98-107) 09/28/19 10:24 Carbon Dioxide 20 mmol/L (22-30) L 09/28/19 10:24 Anion Gap 17 (5-19) 09/28/19 10:24 Est GFR ( Amer) 45 (>60) L 09/28/19 10:24 Glucose 122 mg/dL (75-110) H 09/28/19 10:24 Calcium 9.6 mg/dL (8.4-10.2) 09/28/19 10:24 Magnesium 2.3 mg/dL (1.6-2.3) 09/28/19 10:24 Ferritin 262.00 ng/mL (11.1-264.0) 09/28/19 14:33 Total Bilirubin 0.5 mg/dL (0.2-1.3) 09/28/19 10:24 AST 50 U/L (14-36) H 09/28/19 10:24 Alkaline Phosphatase 75 U/L (38-126) 09/28/19 10:24 Total Protein 8.0 g/dL (6.3-8.2) 09/28/19 10:24 Albumin 4.7 g/dL (3.5-5.0) 09/28/19 10:24 Urine Color YELLOW 09/29/19 06:00 Urine Appearance CLEAR 09/29/19 06:00 Urine pH 5.0 (5.0-9.0) 09/29/19 06:00 Ur Specific [place] 1.011 09/29/19 06:00 Urine Protein 100 mg/dL (NEGATIVE) H 09/29/19 06:00 Urine Glucose (UA) NEGATIVE mg/dL (NEGATIVE) 09/29/19 06:00 Urine Ketones TRACE mg/dL (NEGATIVE) H 09/29/19 06:00 Urine Blood SMALL (NEGATIVE) H 09/29/19 06:00 Urine Nitrite NEGATIVE (NEGATIVE) 09/29/19 06:00 Ur Leukocyte Esterase TRACE (NEGATIVE) H 09/29/19 06:00 Urine WBC (Auto) 3 /HPF 09/29/19 06:00 Urine RBC (Auto) 1 /HPF 09/29/19 06:00 09/28/19 09/28/19 09/28/19 10:24 10:24 12:25 Creatine Kinase 118 102 Troponin I 0.162 09/28/19 09/28/19 09/29/19 12:25 19:20 01:15 Creatine Kinase Troponin I 0.271 1.090 1.040 Current Medication List Generic Name Dose Route Start Last Admin Trade Name Freq PRN Reason Stop Dose Admin Acetaminophen 650 mg 09/28/19 17:09 Tylenol 325 Mg Tablet PO 10/28/19 17:08 Q4HP PRN FOR PAIN OR TEMP Acetaminophen 650 mg 09/28/19 17:09 Tylenol 650 Mg Supp AL 10/28/19 17:08 Q4HP PRN FOR PAIN OR TEMP Al Hydrox/Mg Hydrox/Simethicone 15 ml 09/28/19 17:09 Maalox Plus Susp 30 Udcup PO 10/28/19 17:08 Q6HP PRN HEARTBURN Amlodipine Besylate 5 mg 09/29/19 10:00 Norvasc 5 Mg Tablet PO 10/29/19 09:59 DAILY KIRSTIN Aspirin 81 mg 09/28/19 22:00 09/28/19 21:42 Ecotrin 81 Mg Ec Tablet PO 10/28/19 21:59 81 mg QHS KIRSTIN Administration Atorvastatin Calcium 80 mg 09/28/19 22:00 09/28/19 21:42 Lipitor 80 Mg Tablet PO 10/28/19 21:59 80 mg QHS KIRSTIN Administration Carvedilol 6.25 mg 09/28/19 22:00 09/28/19 21:43 Coreg 6.25 Mg Tablet PO 10/28/19 21:59 6.25 mg Q12 KIRSTIN Administration Clonidine 0.2 mg 09/28/19 22:00 09/28/19 21:42 Catapres 0.2 Mg Tablet PO 10/28/19 21:59 0.2 mg Q12 KIRSTIN Administration Enoxaparin Sodium 50 mg 09/28/19 22:00 09/28/19 21:41 Lovenox Inj 60 Mg/0.6 Ml Disp.Syrin SUBCUT 10/28/19 21:59 50 mg QHS KIRSTIN Administration Famotidine 20 mg 09/28/19 22:00 09/28/19 21:43 Pepcid 20 Mg Tablet PO 10/28/19 21:59 20 mg QHS KIRSTIN Administration Fluticasone/Vilanterol 1 inh 09/29/19 10:00 Trelegy 100-62.5-25 Mcg Ellipta 14 Dose/Dpi IH 10/29/19 09:59 DAILY KIRSTIN Hydralazine HCl 10 mg 09/28/19 17:49 Apresoline Inj/Pf 20 Mg/1 Ml Sdv IV 10/28/19 17:48 Q4HP PRN Give For Sbp > 160 Lactated Ringer's 1,000 mls @ 150 mls/hr 09/28/19 17:09 09/29/19 04:24 Lactated Ringers 1000 Ml Iv Soln IV 10/28/19 17:08 Infused CONTINUOUS PRN Infusion THIS MED IS NOT "PRN" Isosorbide Mononitrate 30 mg 09/28/19 18:00 09/28/19 18:24 Imdur 30 Mg Tablet.Er PO 10/28/19 17:59 Not Given BID KIRSTIN Losartan Potassium 50 mg 09/28/19 18:00 09/29/19 05:54 Cozaar 50 Mg Tablet PO 10/28/19 17:59 50 mg Q12A KIRSTIN Administration Metoprolol Tartrate 5 mg 09/28/19 17:49 Lopressor Inj/Pf 5 Mg/5 Ml Sdv IV 10/28/19 17:48 Q6HP PRN Give For Hr > 110 Morphine Sulfate 2 mg 09/28/19 19:54 Morphine 10 Mg/Ml Inj IV 10/05/19 19:53 Q4HP PRN FOR PAIN SCALE 3-5 Promethazine HCl 12.5 mg 09/28/19 17:09 Phenergan Inj 25 Mg/1 Ml Vial IV 10/28/19 17:08 Q4HP PRN FOR NAUSEA/VOMITING Promethazine HCl 25 mg 09/28/19 17:09 Phenergan 25 Mg Supp.Rect AL 10/28/19 17:08 Q4HP PRN FOR NAUSEA/VOMITING Sodium Chloride 2.5 ml 09/28/19 22:00 09/29/19 05:54 Saline Flush 2.5 Ml Monoject Prefil Syrin IV 10/28/19 21:59 2.5 ml Q8 KIRSTIN Administration Discontinued Medications Generic Name Dose Route Start Last Admin Trade Name Freq PRN Reason Stop Dose Admin Clonidine 0.4 mg 09/28/19 13:30 09/28/19 14:38 Catapres 0.2 Mg Tablet PO 09/28/19 13:31 0.4 mg NOW ONE Administration Hydralazine HCl 20 mg 09/28/19 11:01 09/28/19 11:36 Apresoline Inj/Pf 20 Mg/1 Ml Sdv IV 09/28/19 11:02 20 mg NOW ONE Administration Hydralazine HCl 20 mg 09/28/19 13:04 09/28/19 13:32 Apresoline Inj/Pf 20 Mg/1 Ml Sdv IV 09/28/19 13:05 20 mg NOW ONE Administration Sodium Chloride 1,000 mls @ 0 mls/hr 09/28/19 11:01 09/28/19 12:10 Nacl 0.9% 1000 Ml Iv Soln IV 09/28/19 11:02 Infused BOLUS ONE Infusion Wide Open Sodium Chloride 500 mls @ 0 mls/hr 09/28/19 13:05 09/28/19 17:11 Nacl 0.9% 1000 Ml Iv Soln IV 09/28/19 13:06 Infused BOLUS ONE Infusion Wide Open Metoclopramide HCl 5 mg 09/28/19 12:05 09/28/19 12:08 Reglan Inj/Pf 10 Mg/2 Ml Sdv IV 09/28/19 12:06 5 mg NOW ONE Administration Metoclopramide HCl 5 mg 09/28/19 14:44 09/28/19 16:41 Reglan Inj/Pf 10 Mg/2 Ml Sdv IV 09/28/19 14:45 Not Given NOW ONE Metoprolol Tartrate 5 mg 09/28/19 12:05 09/28/19 12:08 Lopressor Inj/Pf 5 Mg/5 Ml Sdv IV 09/28/19 12:06 5 mg NOW ONE Administration Metoprolol Tartrate 5 mg 09/28/19 13:04 09/28/19 13:32 Lopressor Inj/Pf 5 Mg/5 Ml Sdv IV 09/28/19 13:05 5 mg NOW ONE Administration Metoprolol Tartrate 5 mg 09/28/19 13:30 09/28/19 14:40 Lopressor Inj/Pf 5 Mg/5 Ml Sdv IV 09/28/19 13:31 5 mg NOW ONE Administration Ondansetron HCl 4 mg 09/28/19 11:02 09/28/19 11:36 Zofran Inj/Pf 4 Mg/2 Ml Sdv IV 09/28/19 11:03 4 mg NOW ONE Administration Assessment & Plan - Diagnosis (1) Elevated troponin I level Is this a current diagnosis for this admission?: Yes Plan: 74-year-old female with cardiac risk factors of age, tension and hyperlipidemia who presented with hypertensive emergency with an initial blood pressure of 210 mmHg in the emergency room after at least 2 to 3 days of not being able to keep her medications down. Her cardiac troponin has peaked at 1.090 and is now downtrending. Although the patient has significant risk factors for coronary artery disease she specifically denied symptoms consistent with an acute coronary syndrome therefore I believe her elevated troponin is secondary to a type II myocardial infarction from her uncontrolled hypertension. She continues to be asymptomatic since admission with a very well controlled blood pressure. We discussed at length the pathophysiology of acute coronary syndrome as well as type II myocardial infarction. We also discussed further work-up to include left heart catheterization versus Lexiscan MPS. After discussing the risks, benefits and alternatives to both options the patient opted for noninvasive assessment with Lexiscan MPS which I agree with given that she never had any ischemic symptoms, her echocardiogram yesterday was inconsistent with cardiac ischemia and I do not believe she had an acute coronary syndrome. Recommendations: -May discontinue Lovenox. -Continue with baby aspirin as well as her other medications. -Lexiscan MPS tomorrow. -Continue with cardiac telemetry. (2) Asymptomatic hypertensive urgency Is this a current diagnosis for this admission?: Yes Plan: Her blood pressure is now at goal. Her renal Doppler yesterday was normal and without evidence of renal artery stenosis. Recommendations: -Further management per primary team. (3) Atrial flutter Qualifiers: Atrial flutter type: typical Qualified Code(s): I48.3 - Typical atrial flutter Is this a current diagnosis for this admission?: Yes Plan: The patient denies ever being diagnosed with atrial flutter, atrial fibrillation or any other atrial dysrhythmias. No further work-up is indicated at this point.
[2019-09-29] MEDS: ACETAMINOPHEN 325 MG TABLET PO PRN ×2 (11:43→22:09)
--- NOTE | 2019-09-29 13:05 | PDOC PROGRESS REPORT ---
Subjective Progress Note for:: 09/29/19 Subjective:: Resting comfortably. No chest pain. Feels better today. Reason For Visit: HYPERTENSIVE EMERGENCY,ATRIAL FLUTTER,POSITIVE Physical Exam Vital Signs: Temp Pulse Resp BP Pulse Ox 97.6 F 85 20 184/66 H 92 09/29/19 07:57 09/29/19 07:57 09/29/19 07:57 09/29/19 07:57 09/29/19 07:57 Intake & Output 09/28/19 09/29/19 09/30/19 06:59 06:59 06:59 Intake Total 2500 Output Total 1100 500 Balance 1400 -500 Weight 54 kg General appearance: PRESENT: no acute distress, cooperative, well-developed Head exam: PRESENT: atraumatic, normocephalic Eye exam: PRESENT: conjunctiva pink. ABSENT: scleral icterus Ear exam: PRESENT: normal external ear exam. ABSENT: bleeding, drainage Mouth exam: PRESENT: moist, tongue midline Neck exam: ABSENT: carotid bruit, JVD, lymphadenopathy Respiratory exam: PRESENT: clear to auscultation nlely, symmetrical, unlabored. ABSENT: prolonged expiratory phas, rales, rhonchi, tachypnea, wheezes Cardiovascular exam: PRESENT: RRR, +S1, +S2. ABSENT: bradycardia, diastolic murmur, irregular rhythm, systolic murmur, tachycardia GI/Abdominal exam: PRESENT: normal bowel sounds, soft. ABSENT: distended, mass, tenderness Rectal exam: PRESENT: deferred Gentrourinary exam: ABSENT: indwelling catheter Extremities exam: ABSENT: joint swelling, pedal edema Musculoskeletal exam: PRESENT: ambulatory, normal inspection. ABSENT: deformity, dislocation Neurological exam: PRESENT: alert, awake, oriented to person, oriented to place, oriented to time, oriented to situation, CN II-XII grossly intact. ABSENT: altered, motor sensory deficit Psychiatric exam: PRESENT: appropriate affect. ABSENT: agitated, anxious Focused psych exam: ABSENT: delusional, paranoid, restlessness Skin exam: PRESENT: dry, normal color, warm. ABSENT: rash Results Laboratory Results: 09/29/19 07:40 09/29/19 07:40 09/28/19 09/29/19 09/29/19 14:33 06:00 07:40 WBC RBC Hgb Hct MCV MCH MCHC RDW Plt Count Sodium 136.9 L Potassium 4.3 Chloride 102 Carbon Dioxide 26 Anion Gap 9 BUN 20 Creatinine 1.07 Est GFR ( Amer) > 60 Glucose 86 Calcium 8.3 L Phosphorus 1.9 L Ferritin 262.00 Albumin 3.6 Triglycerides 228 H Cholesterol 178.31 LDL Cholesterol Direct 91 VLDL Cholesterol 45.6 H HDL Cholesterol 60 TSH Urine Color YELLOW Urine Appearance CLEAR Urine pH 5.0 Ur Specific [place] 1.011 Urine Protein 100 H Urine Glucose (UA) NEGATIVE Urine Ketones TRACE H Urine Blood SMALL H Urine Nitrite NEGATIVE Ur Leukocyte Esterase TRACE H Urine WBC (Auto) 3 Urine RBC (Auto) 1 09/29/19 09/29/19 07:40 07:40 WBC 7.0 RBC 4.32 Hgb 12.4 Hct 37.1 MCV 86 MCH 28.7 MCHC 33.4 RDW 14.5 H Plt Count 310 Sodium Potassium Chloride Carbon Dioxide Anion Gap BUN Creatinine Est GFR ( Amer) Glucose Calcium Phosphorus Ferritin Albumin Triglycerides Cholesterol LDL Cholesterol Direct VLDL Cholesterol HDL Cholesterol TSH 0.04 L Urine Color Urine Appearance Urine pH Ur Specific [place] Urine Protein Urine Glucose (UA) Urine Ketones Urine Blood Urine Nitrite Ur Leukocyte Esterase Urine WBC (Auto) Urine RBC (Auto) 09/28/19 09/28/19 09/28/19 10:24 10:24 12:25 Creatine Kinase 118 102 Troponin I 0.162 09/28/19 09/28/19 09/29/19 12:25 19:20 01:15 Creatine Kinase Troponin I 0.271 1.090 1.040 09/29/19 07:40 Creatine Kinase Troponin I 0.578 Impressions: Acute Abdomen Series 09/28/19 14:43 IMPRESSION: Cannot exclude a limited right lower lobe pneumonia. Osseous findings as described. Renal Artery Duplex 09/29/19 00:00 IMPRESSION: NO DOPPLER EVIDENCE OF HEMODYNAMICALLY SIGNIFICANT RENAL ARTERY STENOSIS. Assessment and Plan - Diagnosis (1) Asymptomatic hypertensive urgency Is this a current diagnosis for this admission?: Yes Plan: I do not want to drive her blood pressure down too quickly. I will substitute carvedilol for metoprolol. I will decrease her hydralazine to 50 mg twice daily. I will split her losartan to 50 mg twice daily. We will continue the amlodipine 5 mg daily. I have decreased the clonidine to 0.2 mg twice daily. I have continued the Imdur 30 mg twice daily. We will continue to monitor her on telemetry and with serial vital signs. Much better control on current regimen. cont same (2) Elevated troponin I level Is this a current diagnosis for this admission?: Yes Plan: Type II NSTEMI. Stress test in AM. Troponins trending down (3) Atrial flutter Qualifiers: Atrial flutter type: typical Qualified Code(s): I48.3 - Typical atrial flutter Is this a current diagnosis for this admission?: Yes Plan: Now NSR. Continue Coreg (4) Nausea and vomiting Qualifiers: Vomiting type: unspecified Vomiting Intractability: non-intractable Qualified Code(s): R11.2 - Nausea with vomiting, unspecified Is this a current diagnosis for this admission?: Yes Plan: Unsure of etiology but resolved. (5) Chronic obstructive pulmonary disease Qualifiers: COPD type: unspecified COPD Qualified Code(s): J44.9 - Chronic obstructive pulmonary disease, unspecified Is this a current diagnosis for this admission?: Yes Plan: No need for oxygen supplementation. We will continue the patient's Trelegy inhaler. Remains stable (6) Acute kidney injury Is this a current diagnosis for this admission?: Yes Plan: BUN and Cr back to normal (7) Hyperkalemia Is this a current diagnosis for this admission?: Yes Plan: resolved (8) Hyperglycemia Is this a current diagnosis for this admission?: Yes Plan: glucose now normal. continue to monitor (9) Non-ST elevation myocardial infarction (NSTEMI) Is this a current diagnosis for this admission?: Yes Plan: Troponins trending down. Stress test tomorrow (10) Hyperthyroidism Is this a current diagnosis for this admission?: Yes Plan: TSH is very low. This is similar to previous labs. Will check free T3 and Free T4 - Time Time Spent with patient: 15-24 minutes Medications reviewed and adjusted accordingly: Yes Anticipated Discharge Disposition: Home, Self Care Anticipated Discharge Timeframe: within 48 hours
[2019-09-29] MEDS: ATORVASTATIN CALCIUM 80 MG TABLET PO SCH (21:51)
[2019-09-29] MEDS: ASPIRIN 81 MG TABLET, ENT COATED PO SCH (21:52)
[2019-09-29] MEDS: ENOXAPARIN SODIUM INJ 60 MG/0.6 ML DISP.SYRIN SUBCUT SCH (21:52)
[2019-09-29] MEDS: FAMOTIDINE 20 MG TABLET PO SCH (21:57)
[2019-09-29] MEDS: RINGERS SOLUTION,LACTATED 1,000 ML IV PRN (22:06)
[2019-09-30 05:02] VITALS: BP 142/52
[2019-09-30] MEDS: LOSARTAN POTASSIUM 50 MG TABLET PO SCH (05:30)
[2019-09-30] MEDS: RINGERS SOLUTION,LACTATED 1,000 ML IV PRN (05:31)
[2019-09-30 07:17] LABS: ALBUMIN 2.8 g/dL (3.5-5.0); BLOOD UREA NITROGEN 20 mg/dL (7-20); CALCIUM 7.7 mg/dL (8.4-10.2); GLUCOSE 85 mg/dL (75-110); PHOSPHORUS 2.5 mg/dL (2.5-4.5); POTASSIUM 3.8 mmol/L (3.6-5.0)
[2019-09-30 07:22] LABS: CARBON DIOXIDE 27 mmol/L (22-30); CHLORIDE 104 mmol/L (98-107)
[2019-09-30 07:26] LABS: ANION GAP 4 (5-19)
[2019-09-30 07:31] LABS: FREE T4 (FREE THYROXINE) 1.9 ng/dL (0.78-2.19)
[2019-09-30] MEDS: AMLODIPINE BESYLATE 5 MG TABLET PO SCH (11:31)
[2019-09-30] MEDS: CARVEDILOL 6.25 MG TABLET PO SCH (11:31)
[2019-09-30] MEDS: ISOSORBIDE MONONITRATE 30 MG TAB.ER.24H PO SCH (11:31)
[2019-09-30] MEDS: CLONIDINE HCL 0.2 MG TABLET PO SCH (11:31)
--- NOTE | 2019-09-30 13:28 | PDOC PROGRESS REPORT ---
Subjective Progress Note for:: 09/30/19 Subjective:: SNOW FOX is a 74 year old female with history of hypertension, COPD, breast cancer status post right mastectomy in 2004 and hypercholesterolemia who is consulted to our service for evaluation of elevated troponins. She had been in her usual state of health until approximately 3 days ago when she began having nausea, vomiting and diarrhea reason why she was not able to take any of her medications or if she did, she vomited them right back up. In the emergency room she was found to have a systolic blood pressure of 210 mmHg. Since admission she has remained asymptomatic and feels 100% better. She specifically denies history of atrial flutter or atrial fibrillation as well as chest pain, shortness of breath, DENT, PND, lower extremity edema, palpitations, syncope and presyncope. She is now tolerating p.o.'s with uptrending troponin which peaked at 1.090. When specifically asked, she states that she is able to perform her regular daily activities as well as physical activities without any ischemic or heart failure symptoms. Her echocardiogram yesterday demonstrated a normal ejection fraction without focal wall motion abnormalities and very mild aortic stenosis with a peak velocity of 2.2 m/s and a mean gradient of 8 mmHg. Since admission her blood pressure has remained well controlled. 09/30/19: The patient has an uneventful night and denies new cardiac complaints today. Her troponin trended down. She continues to deny ischemic and heart failure symptoms. Physical exam on 09/30/2019: GENERAL: Small, appears older than stated age. Pleasant and conversational. Oriented x3 with normal mood. Not in acute distress. Well groomed and well developed. HEENT: Normocephalic, atraumatic. Pupils equal. Sclerae anicteric. Oropharynx moist. NECK: No JVD. No carotid bruits. LUNGS: Clear to auscultation bilaterally. Decreased breath sounds bilaterally normal respiratory effort without the use of accessory muscles or intercostal retractions. CARDIOVASCULAR: Regular rate and rhythm, normal S1 and S2 without murmurs, rubs, or gallops. PMI not displaced. ABDOMEN: No masses or tenderness to palpation. No bruit. No splenomegaly or hepatomegaly. No abdominal aorta bruit noted. EXTREMITIES: No edema, no cyanosis, no clubbing. +2 pulses femoral and pedal pulses bilaterally. SKIN: No lesions or rashes. MUSCULOSKELETAL: No chest tenderness to palpation. Barrel chest. NEUROLOGIC: Nonfocal. No gross sensory or motor deficits bilateral upper or lower extremities. Cardiac studies: Echocardiogram on 09/28/2019 at [facility]: -EF greater than 65%. -Grade 1 diastolic dysfunction. -No wall motion abnormalities. -Trace TR, trace AI. -Mild aortic stenosis with a peak velocity of 2.2 m/s and a mean gradient of 8 mmHg. Echocardiogram on 06/25/2017: -EF greater than 65%. -Mild concentric LVH. -Grade 2 diastolic dysfunction. -Elevated filling pressures. -Mild to moderate MR, mild TR. -Mild pulmonary hypertension. Lexiscan MPS on 06/25/2017: -No evidence of ischemia or infarct. Reason For Visit: HYPERTENSIVE EMERGENCY,ATRIAL FLUTTER,POSITIVE Physical Exam Vital Signs: Temp Pulse Resp BP Pulse Ox 97.7 F 78 20 142/52 H 100 09/30/19 03:58 09/30/19 03:58 09/30/19 03:58 09/30/19 03:58 09/30/19 03:58 Intake & Output 09/28/19 09/29/19 09/30/19 06:59 06:59 06:59 Intake Total 2500 1000 Output Total 1100 900 Balance 1400 100 Weight 54 kg Results Laboratory Results: 09/29/19 07:40 09/29/19 07:40 09/29/19 09/29/19 09/29/19 06:00 07:40 07:40 WBC 7.0 RBC 4.32 Hgb 12.4 Hct 37.1 MCV 86 MCH 28.7 MCHC 33.4 RDW 14.5 H Plt Count 310 Sodium 136.9 L Potassium 4.3 Chloride 102 Carbon Dioxide 26 Anion Gap 9 BUN 20 Creatinine 1.07 Est GFR ( Amer) > 60 Glucose 86 Calcium 8.3 L Phosphorus 1.9 L Albumin 3.6 Triglycerides 228 H Cholesterol 178.31 LDL Cholesterol Direct 91 VLDL Cholesterol 45.6 H HDL Cholesterol 60 TSH Urine Color YELLOW Urine Appearance CLEAR Urine pH 5.0 Ur Specific [place] 1.011 Urine Protein 100 H Urine Glucose (UA) NEGATIVE Urine Ketones TRACE H Urine Blood SMALL H Urine Nitrite NEGATIVE Ur Leukocyte Esterase TRACE H Urine WBC (Auto) 3 Urine RBC (Auto) 1 09/29/19 07:40 WBC RBC Hgb Hct MCV MCH MCHC RDW Plt Count Sodium Potassium Chloride Carbon Dioxide Anion Gap BUN Creatinine Est GFR ( Amer) Glucose Calcium Phosphorus Albumin Triglycerides Cholesterol LDL Cholesterol Direct VLDL Cholesterol HDL Cholesterol TSH 0.04 L Urine Color Urine Appearance Urine pH Ur Specific [place] Urine Protein Urine Glucose (UA) Urine Ketones Urine Blood Urine Nitrite Ur Leukocyte Esterase Urine WBC (Auto) Urine RBC (Auto) 09/28/19 09/28/19 09/28/19 10:24 10:24 12:25 Creatine Kinase 118 102 Troponin I 0.162 09/28/19 09/28/19 09/29/19 12:25 19:20 01:15 Creatine Kinase Troponin I 0.271 1.090 1.040 09/29/19 07:40 Creatine Kinase Troponin I 0.578 Impressions: Acute Abdomen Series 09/28/19 14:43 IMPRESSION: Cannot exclude a limited right lower lobe pneumonia. Osseous findings as described. Renal Artery Duplex 09/29/19 00:00 IMPRESSION: NO DOPPLER EVIDENCE OF HEMODYNAMICALLY SIGNIFICANT RENAL ARTERY STENOSIS. 09/29/19 07:40 09/29/19 07:40 MCV 86 fl (80-97) 09/29/19 07:40 MCH 28.7 pg (27.0-33.4) 09/29/19 07:40 MCHC 33.4 g/dL (32.0-36.0) 09/29/19 07:40 RDW 14.5 % (11.5-14.0) H 09/29/19 07:40 Seg Neutrophils % 82.9 % (42-78) H 09/28/19 10:24 Chloride 102 mmol/L (98-107) 09/29/19 07:40 Carbon Dioxide 26 mmol/L (22-30) 09/29/19 07:40 Anion Gap 9 (5-19) 09/29/19 07:40 Est GFR ( Amer) > 60 (>60) 09/29/19 07:40 Glucose 86 mg/dL (75-110) 09/29/19 07:40 Calcium 8.3 mg/dL (8.4-10.2) L 09/29/19 07:40 Phosphorus 1.9 mg/dL (2.5-4.5) L 09/29/19 07:40 Magnesium 2.3 mg/dL (1.6-2.3) 09/28/19 10:24 Ferritin 262.00 ng/mL (11.1-264.0) 09/28/19 14:33 Total Bilirubin 0.5 mg/dL (0.2-1.3) 09/28/19 10:24 AST 50 U/L (14-36) H 09/28/19 10:24 Alkaline Phosphatase 75 U/L (38-126) 09/28/19 10:24 Total Protein 8.0 g/dL (6.3-8.2) 09/28/19 10:24 Albumin 3.6 g/dL (3.5-5.0) 09/29/19 07:40 Triglycerides 228 mg/dL (<150) H 09/29/19 07:40 Cholesterol 178.31 mg/dL (0-200) 09/29/19 07:40 LDL Cholesterol Direct 91 mg/dL (<100) 09/29/19 07:40 VLDL Cholesterol 45.6 mg/dL (10-31) H 09/29/19 07:40 HDL Cholesterol 60 mg/dL (>40) 09/29/19 07:40 TSH 0.04 uIU/mL (0.47-4.68) L 09/29/19 07:40 Urine Color YELLOW 09/29/19 06:00 Urine Appearance CLEAR 09/29/19 06:00 Urine pH 5.0 (5.0-9.0) 09/29/19 06:00 Ur Specific [place] 1.011 09/29/19 06:00 Urine Protein 100 mg/dL (NEGATIVE) H 09/29/19 06:00 Urine Glucose (UA) NEGATIVE mg/dL (NEGATIVE) 09/29/19 06:00 Urine Ketones TRACE mg/dL (NEGATIVE) H 09/29/19 06:00 Urine Blood SMALL (NEGATIVE) H 09/29/19 06:00 Urine Nitrite NEGATIVE (NEGATIVE) 09/29/19 06:00 Ur Leukocyte Esterase TRACE (NEGATIVE) H 09/29/19 06:00 Urine WBC (Auto) 3 /HPF 09/29/19 06:00 Urine RBC (Auto) 1 /HPF 09/29/19 06:00 09/28/19 09/28/19 09/28/19 10:24 10:24 12:25 Creatine Kinase 118 102 Troponin I 0.162 09/28/19 09/28/19 09/29/19 12:25 19:20 01:15 Creatine Kinase Troponin I 0.271 1.090 1.040 09/29/19 07:40 Creatine Kinase Troponin I 0.578 Current Medication List Generic Name Dose Route Start Last Admin Trade Name Freq PRN Reason Stop Dose Admin Acetaminophen 650 mg 09/28/19 17:09 09/29/19 22:09 Tylenol 325 Mg Tablet PO 10/28/19 17:08 650 mg Q4HP PRN Administration FOR PAIN OR TEMP Acetaminophen 650 mg 09/28/19 17:09 Tylenol 650 Mg Supp [place] 10/28/19 17:08 Q4HP PRN FOR PAIN OR TEMP Al Hydrox/Mg Hydrox/Simethicone 15 ml 09/28/19 17:09 Maalox Plus Susp 30 Udcup PO 10/28/19 17:08 Q6HP PRN HEARTBURN Amlodipine Besylate 5 mg 09/29/19 10:00 09/29/19 10:14 Norvasc 5 Mg Tablet PO 10/29/19 09:59 5 mg DAILY KIRSTIN Administration Aspirin 81 mg 09/28/19 22:00 09/29/19 21:52 Ecotrin 81 Mg Ec Tablet PO 10/28/19 21:59 81 mg QHS KIRSTIN Administration Atorvastatin Calcium 80 mg 09/28/19 22:00 09/29/19 21:51 Lipitor 80 Mg Tablet PO 10/28/19 21:59 80 mg QHS KIRSTIN Administration Carvedilol 6.25 mg 09/28/19 22:00 09/29/19 21:52 Coreg 6.25 Mg Tablet PO 10/28/19 21:59 6.25 mg Q12 KIRSTIN Administration Clonidine 0.2 mg 09/28/19 22:00 09/29/19 21:51 Catapres 0.2 Mg Tablet PO 10/28/19 21:59 0.2 mg Q12 KIRSTIN Administration Enoxaparin Sodium 50 mg 09/28/19 22:00 09/29/19 21:52 Lovenox Inj 60 Mg/0.6 Ml Disp.Syrin SUBCUT 10/28/19 21:59 50 mg QHS KIRSTIN Administration Famotidine 20 mg 09/28/19 22:00 09/29/19 21:57 Pepcid 20 Mg Tablet PO 10/28/19 21:59 Not Given QHS KIRSTIN Fluticasone/Vilanterol 1 inh 09/29/19 10:00 09/29/19 10:14 Trelegy 100-62.5-25 Mcg Ellipta 14 Dose/Dpi IH 10/29/19 09:59 1 inhaler DAILY KIRSTIN Administration Hydralazine HCl 10 mg 09/28/19 17:49 Apresoline Inj/Pf 20 Mg/1 Ml Sdv IV 10/28/19 17:48 Q4HP PRN Give For Sbp > 160 Lactated Ringer's 1,000 mls @ 150 mls/hr 09/28/19 17:09 09/30/19 05:31 Lactated Ringers 1000 Ml Iv Soln IV 10/28/19 17:08 150 mls/hr CONTINUOUS PRN Administration THIS MED IS NOT "PRN" Isosorbide Mononitrate 30 mg 09/28/19 18:00 09/29/19 17:43 Imdur 30 Mg Tablet.Er PO 10/28/19 17:59 30 mg BID KIRSTIN Administration Losartan Potassium 50 mg 09/28/19 18:00 09/30/19 05:30 Cozaar 50 Mg Tablet PO 10/28/19 17:59 50 mg Q12A KIRSTIN Administration Metoprolol Tartrate 5 mg 09/28/19 17:49 Lopressor Inj/Pf 5 Mg/5 Ml Sdv IV 10/28/19 17:48 Q6HP PRN Give For Hr > 110 Morphine Sulfate 2 mg 09/28/19 19:54 Morphine 10 Mg/Ml Inj IV 10/05/19 19:53 Q4HP PRN FOR PAIN SCALE 3-5 Promethazine HCl 12.5 mg 09/28/19 17:09 Phenergan Inj 25 Mg/1 Ml Vial IV 10/28/19 17:08 Q4HP PRN FOR NAUSEA/VOMITING Promethazine HCl 25 mg 09/28/19 17:09 Phenergan 25 Mg Supp.Rect NJ 10/28/19 17:08 Q4HP PRN FOR NAUSEA/VOMITING Sodium Chloride 2.5 ml 09/28/19 22:00 09/30/19 05:34 Saline Flush 2.5 Ml Monoject Prefil Syrin IV 10/28/19 21:59 Not Given Q8 KIRSTIN Discontinued Medications Generic Name Dose Route Start Last Admin Trade Name Freq PRN Reason Stop Dose Admin Clonidine 0.4 mg 09/28/19 13:30 09/28/19 14:38 Catapres 0.2 Mg Tablet PO 09/28/19 13:31 0.4 mg NOW ONE Administration Hydralazine HCl 20 mg 09/28/19 11:01 09/28/19 11:36 Apresoline Inj/Pf 20 Mg/1 Ml Sdv IV 09/28/19 11:02 20 mg NOW ONE Administration Hydralazine HCl 20 mg 09/28/19 13:04 09/28/19 13:32 Apresoline Inj/Pf 20 Mg/1 Ml Sdv IV 09/28/19 13:05 20 mg NOW ONE Administration Sodium Chloride 1,000 mls @ 0 mls/hr 09/28/19 11:01 09/28/19 12:10 Nacl 0.9% 1000 Ml Iv Soln IV 09/28/19 11:02 Infused BOLUS ONE Infusion Wide Open Sodium Chloride 500 mls @ 0 mls/hr 09/28/19 13:05 09/28/19 17:11 Nacl 0.9% 1000 Ml Iv Soln IV 09/28/19 13:06 Infused BOLUS ONE Infusion Wide Open Metoclopramide HCl 5 mg 09/28/19 12:05 09/28/19 12:08 Reglan Inj/Pf 10 Mg/2 Ml Sdv IV 09/28/19 12:06 5 mg NOW ONE Administration Metoclopramide HCl 5 mg 09/28/19 14:44 09/28/19 16:41 Reglan Inj/Pf 10 Mg/2 Ml Sdv IV 09/28/19 14:45 Not Given NOW ONE Metoprolol Tartrate 5 mg 09/28/19 12:05 09/28/19 12:08 Lopressor Inj/Pf 5 Mg/5 Ml Sdv IV 09/28/19 12:06 5 mg NOW ONE Administration Metoprolol Tartrate 5 mg 09/28/19 13:04 09/28/19 13:32 Lopressor Inj/Pf 5 Mg/5 Ml Sdv IV 09/28/19 13:05 5 mg NOW ONE Administration Metoprolol Tartrate 5 mg 09/28/19 13:30 09/28/19 14:40 Lopressor Inj/Pf 5 Mg/5 Ml Sdv IV 09/28/19 13:31 5 mg NOW ONE Administration Ondansetron HCl 4 mg 09/28/19 11:02 09/28/19 11:36 Zofran Inj/Pf 4 Mg/2 Ml Sdv IV 09/28/19 11:03 4 mg NOW ONE Administration Assessment & Plan - Diagnosis (1) Elevated troponin I level Is this a current diagnosis for this admission?: Yes Plan: 74-year-old female with cardiac risk factors of age, tension and hyperlipidemia who presented with hypertensive emergency with an initial blood pressure of 210 mmHg in the emergency room after at least 2 to 3 days of not being able to keep her medications down. Her cardiac troponin has peaked at 1.090 and is now downtrending. She continues to deny symptoms consistent with an acute coronary syndrome therefore I believe her elevated troponin is secondary to a type II myocardial infarction from her hypertensive urgency. Her nuclear stress test today was. Recommendations: -Discontinue full dose Lovenox. -Continue with baby aspirin as well as her other medications. -The patient may be discharged home from the cardiovascular standpoint. (2) Asymptomatic hypertensive urgency Is this a current diagnosis for this admission?: Yes Plan: Her blood pressure is now close to her goal. Her renal Doppler was normal and without evidence of renal artery stenosis. Recommendations: -Further management per primary team. (3) Atrial flutter Qualifiers: Atrial flutter type: typical Qualified Code(s): I48.3 - Typical atrial flutter Is this a current diagnosis for this admission?: Yes Plan: The patient denies ever being diagnosed with atrial flutter, atrial fibrillation or any other atrial dysrhythmias. No further work-up is indicated at this point.
[2019-09-30] MEDS: FLUTICASONE/UMECLIDIN/VILANTER 100-62.5-25 MCG/DOSE IH SCH (13:35)
--- NOTE | 2019-09-30 14:27 | DRAGON STRESS TEST REPORT ---
Name: Sonya Hamm : 43 Date: 09/30/19 The patient underwent a stress/rest, single isotope SPECT Imaging with pharmacological stress and gated SPECT imaging on for evaluation of. The patient underwent infusion of regadnoson 0.4mg IV using the standard protocol. The heart rate was 92 beats per minute at baseline and increased to 125 beats during the infusion of regadenoson. The resting blood pressure was 170/65 mm/Hg and increased to 201/66 mm/Hg, which is an abnormal response. The patient complained of nausea and dyspnea during the procedure. The resting electrocardiogram demonstrated NSR. Stress electrocardiogram is non- diagnostic in the setting of pharmacological stress. Myocardial perfusion imaging was performed at rest following the injection of 10.76 mCi of sestamibi. At peak pharmacolgic effect, the patient was injected with 32.9 mCi of sestamibi. Gating post-stress tomographic imaging was performed 60 minutes after stress. Findings The overall quality of the study is good. Raw images demonstrate inferior wall GI contamination. Left ventricular cavity is noted to be normal on the rest and stress studies. Resting SPECT images demonstrate homogeneous tracer distribution throughout the myocardium. The stress images reveal homogeneous tracer distribution throughout the myocardium. Gated SPECT imaging reveals normal myocardial thickening and wall motion. The left ventricular ejection fraction was calculated to be 55%. Impression -Myocardial perfusion imaging is normal with the above artifacts. -There is no scintigraphic evidence of ischemia or infarct. -Overall left ventricular systolic function was normal without wall motion abnormalities. -There are no prior studies for comparison. [facility]
--- NOTE | 2019-09-30 14:40 | PDOC DISCHARGE SUMMARY ---
Impression - Admit/DC Date/PCP Admission Date/Primary Care Provider: 09/28/19 15:46 ELBERT DAY MD Discharge Date: 09/30/19 - Discharge Diagnosis (1) Asymptomatic hypertensive urgency Is this a current diagnosis for this admission?: Yes (2) Elevated troponin I level Is this a current diagnosis for this admission?: Yes (3) Atrial flutter Is this a current diagnosis for this admission?: Yes (4) Nausea and vomiting Is this a current diagnosis for this admission?: Yes (5) Chronic obstructive pulmonary disease Is this a current diagnosis for this admission?: Yes (6) Acute kidney injury Is this a current diagnosis for this admission?: Yes (7) Hyperkalemia Is this a current diagnosis for this admission?: Yes (8) Hyperglycemia Is this a current diagnosis for this admission?: Yes (9) Non-ST elevation myocardial infarction (NSTEMI) Is this a current diagnosis for this admission?: Yes (10) Hyperthyroidism Is this a current diagnosis for this admission?: Yes - Additional Information Resuscitation Status: Do Not Resuscitate Discharge Diet: Cardiac Discharge Activity: Activity As Tolerated, Walk Frequently Referrals: ELBERT DAY MD [Primary Care Provider] - 10/08/19 2:00 pm (Ms. Fox will see PEREZ Crenshaw) Prescriptions: Carvedilol [Coreg 6.25 mg Tablet] 6.25 mg PO Q12 15 Days #30 tablet Home Medications: Amlodipine Besylate [Norvasc 5 mg Tablet] 5 mg PO DAILY 09/28/19 Fluticasone/Umeclidin/Vilanter [Trelegy 100-62.5-25 Mcg Ellipta 14 Dose/Dpi] 1 puff IH DAILY 09/28/19 Isosorbide Mononitrate [Imdur 30 mg Tablet.er] 30 mg PO BID 09/28/19 Losartan Potassium 100 mg PO DAILY 09/28/19 Ondansetron [Zofran Odt 4 mg Tablet] 4 mg PO Q8HP PRN 09/28/19 Pravastatin Sodium 40 mg PO QHS 09/28/19 Aspirin [Ecotrin 81 mg EC Tablet] 81 mg PO QHS tabec 09/30/19 Carvedilol [Coreg 6.25 mg Tablet] 6.25 mg PO Q12 15 Days #30 tablet 09/30/19 Clonidine HCl [Catapres 0.2 mg Tablet] 0.2 mg PO Q12 tablet 09/30/19 Clonidine HCl [Catapres 0.2 mg Tablet] 0.2 mg PO Q12 #0 09/30/19 Hydralazine HCl [Apresoline 50 mg Tablet] 50 mg PO Q12 #0 09/30/19 History of Present Illiness History of Present Illness: SNOW FOX is a 74 year old female with a past medical history of hypertension and hypercholesterolemia. She also has a history of chronic obstructive pulmonary disease as well as breast cancer status post right mastectomy in 2004. For the last 2 to 3 days she has been having nausea vomiting and diarrhea. She denies any fever. She does not have any focal abdominal pain. This is not associated with any cough or chest pain. Because of the nausea and vomiting she has not been able to keep down any of her antihypertensive medications. She in fact normally takes clonidine, Imdur, metoprolol, hydralazine, losartan and amlodipine. Because of this her blood pressure is out of control. The highest systolic pressure was 210 with the highest diastolic pressure of 117. Highest pulse rate was 112. Troponins were 0.162 initially and this increased to 0.271. Third troponin is pending. BUN and creatinine were elevated. With a BUN of 33 and a creatinine of 1.39 her GFR was less than 40. The patient will be seen by cardiology. An echocardiogram has been ordered. For the severe hypertension a renal Doppler study was ordered to check for renal artery stenosis. We will try and correct her blood pressure slowly. Her d-dimer was 1.12 but her LDH and ferritin were normal. I do not believe this is Covid-19 related. She will be admitted to the hospital service. She will be monitored closely on telemetry. We will have serial troponins drawn and I have asked for a repeat EKG in the morning. Cardiology will be seeing the patient. I do have her on full-strength Lovenox therapy at 50 mg once daily (adjusted for renal function). We will continue aspirin and statin therapy. Hospital Course Hospital Course: The patient had an unremarkable hospital course. With resumption and adjustment of her medication she had greatly improved blood pressure control. Because of the elevated troponin she underwent a Lexiscan stress test which was negative. Physical Exam Vital Signs: Temp Pulse Resp BP Pulse Ox 97.7 F 78 20 142/52 H 100 09/30/19 03:58 09/30/19 03:58 09/30/19 03:58 09/30/19 03:58 09/30/19 03:58 Intake & Output 09/29/19 09/30/19 10/01/19 06:59 06:59 06:59 Intake Total 2500 1000 Output Total 1100 900 Balance 1400 100 Weight 54 kg 54.1 kg 54.1 kg General appearance: PRESENT: no acute distress, cooperative, well-developed, well-nourished Respiratory exam: PRESENT: clear to auscultation nelly, symmetrical, unlabored. ABSENT: rales, rhonchi, tachypnea, wheezes Cardiovascular exam: PRESENT: RRR, +S1, +S2 GI/Abdominal exam: PRESENT: normal bowel sounds, soft. ABSENT: tenderness Neurological exam: PRESENT: alert, awake, oriented to person, oriented to place, oriented to time, oriented to situation, CN II-XII grossly intact Psychiatric exam: PRESENT: appropriate affect. ABSENT: agitated, anxious Results Laboratory Results: WBC 7.0 10^3/uL (4.0-10.5) 09/29/19 07:40 RBC 4.32 10^6/uL (3.72-5.28) 09/29/19 07:40 Hgb 12.4 g/dL (12.0-15.5) 09/29/19 07:40 Hct 37.1 % (36.0-47.0) 09/29/19 07:40 MCV 86 fl (80-97) 09/29/19 07:40 MCH 28.7 pg (27.0-33.4) 09/29/19 07:40 MCHC 33.4 g/dL (32.0-36.0) 09/29/19 07:40 RDW 14.5 % (11.5-14.0) H 09/29/19 07:40 Plt Count 310 10^3/uL (150-450) 09/29/19 07:40 Lymph % (Auto) 7.5 % (13-45) L 09/28/19 10:24 Kerr % (Auto) 9.2 % (3-13) 09/28/19 10:24 Eos % (Auto) 0.0 % (0-6) 09/28/19 10:24 Baso % (Auto) 0.4 % (0-2) 09/28/19 10:24 Absolute Neuts (auto) 5.7 10^3/uL (1.7-8.2) 09/28/19 10:24 Absolute Lymphs (auto) 0.5 10^3/uL (0.5-4.7) 09/28/19 10:24 Absolute Monos (auto) 0.6 10^3/uL (0.1-1.4) 09/28/19 10:24 Absolute Eos (auto) 0.0 10^3/uL (0.0-0.6) 09/28/19 10:24 Absolute Basos (auto) 0.0 10^3/uL (0.0-0.2) 09/28/19 10:24 Seg Neutrophils % 82.9 % (42-78) H 09/28/19 10:24 D-Dimer 1.12 ug/mL (0.00-0.50) H 09/28/19 10:24 Sodium 134.9 mmol/L (137-145) L 09/30/19 06:19 Potassium 3.8 mmol/L (3.6-5.0) 09/30/19 06:19 Chloride 104 mmol/L (98-107) 09/30/19 06:19 Carbon Dioxide 27 mmol/L (22-30) 09/30/19 06:19 Anion Gap 4 (5-19) L 09/30/19 06:19 BUN 20 mg/dL (7-20) 09/30/19 06:19 Creatinine 1.05 mg/dL (0.52-1.25) 09/30/19 06:19 Est GFR ( Amer) > 60 (>60) 09/30/19 06:19 Est GFR (MDRD) Non-Af 51 (>60) L 09/30/19 06:19 Glucose 85 mg/dL (75-110) 09/30/19 06:19 Calcium 7.7 mg/dL (8.4-10.2) L 09/30/19 06:19 Phosphorus 2.5 mg/dL (2.5-4.5) 09/30/19 06:19 Magnesium 2.3 mg/dL (1.6-2.3) 09/28/19 10:24 Ferritin 262.00 ng/mL (11.1-264.0) 09/28/19 14:33 Total Bilirubin 0.5 mg/dL (0.2-1.3) 09/28/19 10:24 Direct Bilirubin 0.2 mg/dL (0.0-0.4) 09/28/19 10:24 Neonat Total Bilirubin Not Reportable 09/28/19 10:24 Neonat Direct Bilirubin Not Reportable 09/28/19 10:24 Neonat Indirect Bili Not Reportable 09/28/19 10:24 AST 50 U/L (14-36) H 09/28/19 10:24 ALT 23 U/L (<35) 09/28/19 10:24 Alkaline Phosphatase 75 U/L (38-126) 09/28/19 10:24 Lactate Dehydrogenase 256 U/L (120-246) H 09/28/19 14:33 Creatine Kinase 102 U/L (30-135) 09/28/19 12:25 Troponin I 0.578 ng/mL 09/29/19 07:40 Total Protein 8.0 g/dL (6.3-8.2) 09/28/19 10:24 Albumin 2.8 g/dL (3.5-5.0) L 09/30/19 06:19 Triglycerides 228 mg/dL (<150) H 09/29/19 07:40 Cholesterol 178.31 mg/dL (0-200) 09/29/19 07:40 LDL Cholesterol Direct 91 mg/dL (<100) 09/29/19 07:40 VLDL Cholesterol 45.6 mg/dL (10-31) H 09/29/19 07:40 HDL Cholesterol 60 mg/dL (>40) 09/29/19 07:40 TSH 0.04 uIU/mL (0.47-4.68) L 09/29/19 07:40 Free T4 1.90 ng/dL (0.78-2.19) 09/30/19 06:19 Free T3 pg/mL 3.00 pg/mL (2.77-5.27) 09/30/19 06:19 Urine Color YELLOW 09/29/19 06:00 Urine Appearance CLEAR 09/29/19 06:00 Urine pH 5.0 (5.0-9.0) 09/29/19 06:00 Ur Specific [place] 1.011 09/29/19 06:00 Urine Protein 100 mg/dL (NEGATIVE) H 09/29/19 06:00 Urine Glucose (UA) NEGATIVE mg/dL (NEGATIVE) 09/29/19 06:00 Urine Ketones TRACE mg/dL (NEGATIVE) H 09/29/19 06:00 Urine Blood SMALL (NEGATIVE) H 09/29/19 06:00 Urine Nitrite NEGATIVE (NEGATIVE) 09/29/19 06:00 Urine Bilirubin NEGATIVE (NEGATIVE) 09/29/19 06:00 Urine Urobilinogen NEGATIVE mg/dL (<2.0) 09/29/19 06:00 Ur Leukocyte Esterase TRACE (NEGATIVE) H 09/29/19 06:00 Urine WBC (Auto) 3 /HPF 09/29/19 06:00 Urine RBC (Auto) 1 /HPF 09/29/19 06:00 U Hyaline Cast (Auto) 1 /LPF 09/29/19 06:00 Squamous Epi Cells Auto 1 /HPF 09/29/19 06:00 Urine Mucus (Auto) RARE /LPF 09/29/19 06:00 Urine Ascorbic Acid NEGATIVE (NEGATIVE) 09/29/19 06:00 09/28/19 09/28/19 09/28/19 10:24 12:25 19:20 Troponin I 0.162 0.271 1.090 09/29/19 09/29/19 01:15 07:40 Troponin I 1.040 0.578 Impressions: Acute Abdomen Series 09/28/19 14:43 IMPRESSION: Cannot exclude a limited right lower lobe pneumonia. Osseous findings as described. Renal Artery Duplex 09/29/19 00:00 IMPRESSION: NO DOPPLER EVIDENCE OF HEMODYNAMICALLY SIGNIFICANT RENAL ARTERY STENOSIS. Plan Health Concerns: Severe degree of hypertension Plan of Treatment: Continue medications as noted above with cardiology follow-up Goals: Consistent good blood pressure control. Reduce cardiac risk factors. Time Spent: Greater than 30 Minutes Stroke Is this a Stroke Patient?: No Acute Heart Failure - Is this a Heart Failure Patient?: No
[2019-09-30] MEDS ORDERED: REGADENOSON INJ 0.4 MG/5 ML DISP.SYRIN IV ONE (14:44)
== END 2019-09-30 15:58 | disposition home or self-care (01) | DRG 281 ==
LOC: ER 10:00 → EH 15:46 → 3S 17:37
PROVIDERS: ADMIT Hospitalist; ATTEND Hospitalist
DX: I16.0 Hypertensive urgency (principal); I21.A1 Myocardial infarction type 2; I48.3 Typical atrial flutter; N17.9 Acute kidney failure, unspecified; I10 Essential (primary) hypertension; J44.9 Chronic obstructive pulmonary disease, unspecified; Z85.3 Personal history of malignant neoplasm of breast; Z90.11 Acquired absence of right breast and nipple; E78.5 Hyperlipidemia, unspecified; M19.90 Unspecified osteoarthritis, unspecified site; Z88.6 Allergy status to analgesic agent; E87.5 Hyperkalemia; R79.89 Other specified abnormal findings of blood chemistry; E05.90 Thyrotoxicosis, unspecified without thyrotoxic crisis or storm; Z79.899 Other long term (current) drug therapy; Z88.2 Allergy status to sulfonamides
CPT/HCPCS: 36415; 74022; 78452; 80053; 80061; 80069; 81001; 82550; 82728; 83615; 83735; 84439; 84443; 84481; 84484; 85025; 85027; 85379; 87040; 93005; 93010; 93017; 93306; 93975; 96361; 96374; 96375; 96376; 99285; A9500; J0360; J1650; J2405; J2765; J2785; J3490; J7030; J7120; Q9969